=== PATIENT | male | born 1980 | race Caucasian/White ===

== ENCOUNTER 2024-04-08 14:30 | Outpatient (AMB) | payer MEDICAID, SELFPAY ==
--- NOTE | 2024-04-08 14:30 | A.OFFVIS_ITS ---
Vital Signs 04/08/24 14:31 Height 5 ft 8 in Weight 213 lb 13.574 oz BMI 32.5 BP 110/61 Blood Pressure Location Lt brachial Position Sitting Pulse 88 Intake Visit Reasons: Okay per Dr. Gerard Intake Note: Jerry presents in the office as a new patient because he has pains in his abdomen. CC: Pains in the abdomen, sometimes he has constipation. Extraction Operator Required: No Allergies No Known Allergies Allergy (Verified 04/08/24 14:30) HPI HPI Okay per Dr. Gerard: Details: HPI 43 yr old m here for assessment for GERD He had issues with stress and GERD 'he had many tests in [place], [place] and [place] incl EGD was put on paroxetine Recently he feels more reflux worse he has disabled daughter, stressful he feels food getting stuck he has to drink water to push it down he has water and bad taste in mouth he has nausea he has constipation, no blood in stool increased stool frequency at times he takes omeprazole 40 mg prn --last took yesterday he has fatigue he has canker sores ROS: Constitutional : No Weight loss, No Fever, No Chills ENT/Mouth : No sore throat, No Rhinorrhea Eyes: No Swelling, No Redness Cardiovascular : No Chest Pain, No SOB, No Edema--+ Palpitations Respiratory : No Cough, No Sputum, No Wheezing Gastrointestinal : see HPI Genitourinary : NO Dysuria, No Urinary Frequency, No Hematuria, No Urgency Musculoskeletal : No joint pain, No Myalgias, No Joint Swelling--he has pain in mid spine area Skin : No Skin Lesions, No rash Neuro : No Weakness, No Numbness, No Dizziness, No Headache Psych : No Anxiety/Panic, No Depression Heme/Lymph: No Bruising, No Lymphadenopathy Endocrine : No Polyuria, No Polydipsia All other systems reviewed and are negative. Medical History anxiety Surgical History EGD Family History Depresssion mother had liver cancer Social History non smoker, no alcohol, no drug EXAM: GENERAL: The patient is well developed and nontoxic. VITAL SIGNS:see workflow HEENT: Nonicteric sclerae, PERRLA, EOMI. Oropharynx clear. Moist mucous membranes. Conjunctivae appear well perfused. No thyroid mass. CHEST: Chest wall is nontender. HEART: Regular rate and rhythm without murmurs. LUNGS: Clear to auscultation bilaterally. ABDOMEN: Soft, positive bowel sounds, nontender, no organomegaly.no flank tenderness SKIN: No rash, no excessive bruising, petechiae, or purpura. NEUROLOGIC: Cranial nerves II-XII intact without motor/sensory deficit. Psych: normal affect A/P: 1/ GERD 2/ Anxiety PLAN: 1/ EGD with dilation 2/ Labs incl Hep C, B 3/ refer cardiology for palpitations, 4/ check h pylori PFSH Family History Mother Lung cancer Physical Exam Vital Signs: Last Vital Signs Pulse 88 04/08/24 14:31 BP 110/61 04/08/24 14:31 BMI result Body Mass Index 32.5 Assessment & Plan Assessment & Plan (1) GERD (gastroesophageal reflux disease): Code(s): K21.9 - Gastro-esophageal reflux disease without esophagitis Category: Medical Plan: see above (2) Palpitations: Code(s): R00.2 - Palpitations Category: Medical Plan: see above (3) Malnutrition: Code(s): E46 - Unspecified protein-calorie malnutrition Category: Medical Plan: see above Orders: Orders Complete Blood Count Auto Diff Today E46 - Unspecified protein-calorie malnutrition, K21.9 - Gastro-esophageal reflux disease without esophagitis, R00.2 - Palpitations Comprehensive Met. Panel Today E46 - Unspecified protein-calorie malnutrition, K21.9 - Gastro-esophageal reflux disease without esophagitis, K75.81 - Nonalcoholic steatohepatitis (CRUZ), R00.2 - Palpitations Vitamin B3 (Niacin) Today E46 - Unspecified protein-calorie malnutrition, K21.9 - Gastro-esophageal reflux disease without esophagitis, R00.2 - Palpitations Vitamin B5 (Pantothenic Acid) Today E46 - Unspecified protein-calorie malnutrition, K21.9 - Gastro-esophageal reflux disease without esophagitis, R00.2 - Palpitations Vitamin B6 Today E46 - Unspecified protein-calorie malnutrition, K21.9 - Gastro-esophageal reflux disease without esophagitis, R00.2 - Palpitations Vitamin C Today E46 - Unspecified protein-calorie malnutrition, K21.9 - Gastro- esophageal reflux disease without esophagitis, R00.2 - Palpitations Ferritin Today E46 - Unspecified protein-calorie malnutrition, K21.9 - Gastro- esophageal reflux disease without esophagitis, R00.2 - Palpitations Creatine Kinase Total Today E46 - Unspecified protein-calorie malnutrition, K21.9 - Gastro-esophageal reflux disease without esophagitis, R00.2 - Palpitations Transglutaminase IgA Today E46 - Unspecified protein-calorie malnutrition, K21.9 - Gastro-esophageal reflux disease without esophagitis, R00.2 - Palpitations Vitamin A Today E46 - Unspecified protein-calorie malnutrition, K21.9 - Gastro- esophageal reflux disease without esophagitis, R00.2 - Palpitations Vitamin B1 Today E46 - Unspecified protein-calorie malnutrition, K21.9 - Gastro-esophageal reflux disease without esophagitis, R00.2 - Palpitations Vitamin B12 and Folate Today E46 - Unspecified protein-calorie malnutrition, K21.9 - Gastro-esophageal reflux disease without esophagitis, R00.2 - Palpitations Vitamin D 25-OH Total Today E46 - Unspecified protein-calorie malnutrition, K 21.9 - Gastro-esophageal reflux disease without esophagitis, R00.2 - Palpitations Vitamin E Today E46 - Unspecified protein-calorie malnutrition, K21.9 - Gastro- esophageal reflux disease without esophagitis, R00.2 - Palpitations Vitamin K1 Today E46 - Unspecified protein-calorie malnutrition, K21.9 - Gastro-esophageal reflux disease without esophagitis, R00.2 - Palpitations Zinc Today E46 - Unspecified protein-calorie malnutrition, K21.9 - Gastro- esophageal reflux disease without esophagitis, R00.2 - Palpitations Hepatitis A,B,C Profile Today E46 - Unspecified protein-calorie malnutrition, K21.9 - Gastro-esophageal reflux disease without esophagitis, R00.2 - Palpitations Hemoglobin A1c Today E46 - Unspecified protein-calorie malnutrition, K21.9 - Gastro-esophageal reflux disease without esophagitis, R00.2 - Palpitations Magnesium Today E46 - Unspecified protein-calorie malnutrition, K21.9 - Gastro- esophageal reflux disease without esophagitis, R00.2 - Palpitations Rast Allergen Today E46 - Unspecified protein-calorie malnutrition, K21.9 - Gastro-esophageal reflux disease without esophagitis, R00.2 - Palpitations, Z91.018 - Allergy to other foods H Pylori Breath Test Today E46 - Unspecified protein-calorie malnutrition, K21.9 - Gastro-esophageal reflux disease without esophagitis, R00.2 - Palpitations TSH reflex Free T4 Today E46 - Unspecified protein-calorie malnutrition, K21.9 - Gastro-esophageal reflux disease without esophagitis, R00.2 - Palpitations Immunoglobulins,IgG IgA IgM Today E46 - Unspecified protein-calorie malnutrition, K21.9 - Gastro-esophageal reflux disease without esophagitis, R00.2 - Palpitations Referrals Cardiology Referral R00.2 - Palpitations Medications: New sucralfate 10 mL PO BID 1,000 mL 0RF Coding Level of Care Code New Pt Level 4 (22317) Diagnoses GERD (gastroesophageal reflux disease) K21.9 Palpitations R00.2 Malnutrition E46
[2024-04-08 14:31] VITALS: BP 110/61; PULSE 88; BMI 32.5
== END 2024-04-08 15:31 | disposition home or self-care (01) ==
LOC: HO.HGI 14:30
PROVIDERS: Visit Provider Internal Medicine Gastroenterology
DX: K21.9 Gastro-esophageal reflux disease without esophagitis (principal); R00.2 Palpitations; E46 Unspecified protein-calorie malnutrition
CPT/HCPCS: 99204

== ENCOUNTER 2024-04-08 14:30 | Outpatient (REF) | payer MEDICAID, SELFPAY ==
[2024-04-08 16:15] LABS: MANUAL DIFF FLAG NO
[2024-04-08 16:35] LABS: Basophils Percent Auto 0.3 % (0-2); Eosinophils Absolute Auto 0.1 X10*3/uL (0.0-0.4); Hematocrit 45.1 % (42.0-52.0); Hemoglobin 15.2 g/dl (14.0-18.0); Imm Gran Abs Auto 0.01 X10*3/uL (0.00-0.03); Imm Gran Pct Auto 0.1 % (0.0-0.4); Lymphocytes Absolute Auto 2.1 X10*3/uL (1.2-4.9); Lymphocytes Percent Auto 28.5 % (20-40); Mean Corpuscular HGB Conc 33.7 g/dl (31.0-36.0); Mean Corpuscular Hemoglobin 28.4 pg (27.0-33.0); Mean Corpuscular Volume 84.3 fL (80.0-98.0); Mean Platelet Volume 9.6 fL (9.4-12.4); Monocytes Absolute Auto 0.6 X10*3/uL (0.1-1.2); Monocytes Percent Auto 8.2 % (2-11); Neutrophils Absolute Auto 4.5 x10*3/uL (2.0-8.3); Neutrophils Percent Auto 61.9 % (45-73); Platelet Count 285 X10*3/uL (160-400); Red Blood Count 5.35 X10*6/uL (4.60-5.80); Red Cell Distribution Width 12.6 % (11.0-16.0); White Blood Count 7.2 X10*3/uL (4.8-10.8)
[2024-04-08 17:15] LABS: Estimated Average Glucose 100 mg/dL; Hemoglobin A1c % 5.1 % (<6.0); Total Hemoglobin (HGBA1C) 3900.4592 umol/L
[2024-04-08 17:23] LABS: Alanine Aminotransferase 70 U/L (0-40); Albumin Level 4.5 g/dL (3.5-5.0); Alkaline Phosphatase 65 U/L (39-117); Anion Gap 13 (12-20); Aspartate Amino Transferase 157 U/L (5-37); Bilirubin Total 1.3 mg/dL (0.0-1.0); Blood Urea Nitrogen 10 mg/dL (9-16); Calcium 10.2 mg/dL (8.4-10.2); Carbon Dioxide 27 mmol/L (22-29); Chloride 106 mmol/L (96-108); Estimated Glomerular Filt Rate > 60; Glucose Random 80 mg/dL (60-115); Sodium 142 mmol/L (135-145); Total Protein 7.7 g/dL (6.5-8.0)
[2024-04-08 17:41] LABS: Folate 9.8 ng/mL (> or = 4.0); Vitamin B12 298 pg/mL (200-900)
[2024-04-08 17:47] LABS: Ferritin 153 ng/mL (20-250); TSH reflex Free T4 2.35 uIU/mL (0.32-4.0); Vitamin D 25-OH Total 18.6 ng/mL (>30)
[2024-04-09 04:09] LABS: HBc Num1 0.08 S/CO (0.00-0.79); Hepatitis A Antibody IgM 0.25 Index (0-0.79); Hepatitis B Core Antibody Nonreactive (Nonreactive); Hepatitis B Surface Antigen Negative (Negative); ~Hepatitis A Antibody IgM Nonreactive (Nonreactive)
[2024-04-09 04:40] LABS: ~HepC Num1 0.21 S/CO (0.00-0.79); ~Hepatitis C Antibody Nonreactive (Nonreactive)
[2024-04-09 10:58] LABS: HBS Num1 9.17 mIU/mL (0-7.99)
[2024-04-09 11:59] LABS: HBS Num2 8.96 mIU/mL (0-7.99); HBS Num3 8.82 mIU/mL (0-7.99); ~Hepatitis B Surface Antibody GRAYZONE (Nonreactive)
[2024-04-10 13:22] LABS: Transglutaminase IgA <1.0 U/mL
[2024-04-11 18:23] LABS: Zinc 57 mcg/dL (60-130)
[2024-04-11 22:44] LABS: IgA 253 mg/dL (47-310); IgG 1451 mg/dL (600-1640); IgM 127 mg/dL (50-300)
[2024-04-12 16:04] LABS: Nicotinamide <20 ng/mL (see note); Vit B3 - Nicotinic Acid <20 ng/mL (see note)
[2024-04-12 20:03] LABS: Vitamin B6 7.3 ng/mL (2.1-21.7)
[2024-04-13 00:04] LABS: Vitamin K1 178 pg/mL (130-1500)
[2024-04-13 10:14] LABS: Vitamin C 0.2 mg/dL (0.2-2.1)
[2024-04-13 18:34] LABS: Vitamin B1 11 nmol/L (8-30)
[2024-04-14 08:59] LABS: Alpha-Tocopherol 14.9 mg/L (5.7-19.9); Beta-Gamma Tocopherol <1.0 mg/L (<=4.3)
[2024-04-14 15:33] LABS: Vitamin B5 (Pantothenic Acid) <=40 ng/mL (<275)
[2024-04-14 20:38] LABS: Vitamin A 53 mcg/dL (38-98)
== END 2024-04-08 14:31 | disposition home or self-care (01) ==
LOC: HO.LAB 14:30
PROVIDERS: Visit Provider Internal Medicine Gastroenterology
DX: K75.81 Nonalcoholic steatohepatitis (NASH) (principal); R00.2 Palpitations; K21.9 Gastro-esophageal reflux disease without esophagitis; E46 Unspecified protein-calorie malnutrition; R10.9 Unspecified abdominal pain; Z91.018 Allergy to other foods
CPT/HCPCS: 36415; 80053; 82180; 82306; 82550; 82607; 82728; 82746; 82784; 83036; 83735; 84207; 84425; 84443; 84446; 84590; 84591; 84597; 84630; 85025; 86003; 86364; 86704; 86706; 86709; 86803; 87340; 99202

== ENCOUNTER 2024-04-15 11:08 | Outpatient (REF) | payer MEDICAID, SELFPAY ==
[2024-04-15 13:05] LABS: Alanine Aminotransferase 31 U/L (0-40); Albumin Level 4.2 g/dL (3.5-5.0); Alkaline Phosphatase 60 U/L (39-117); Anion Gap 7 (12-20); Aspartate Amino Transferase 22 U/L (5-37); Bilirubin Total 1.5 mg/dL (0.0-1.0); Blood Urea Nitrogen 9 mg/dL (9-16); Calcium 8.8 mg/dL (8.4-10.2); Carbon Dioxide 29 mmol/L (22-29); Chloride 107 mmol/L (96-108); Estimated Glomerular Filt Rate > 60; Glucose Random 101 mg/dL (60-115); Potassium 3.8 mmol/L (3.3-5.1); Sodium 139 mmol/L (135-145); Total Protein 7.3 g/dL (6.5-8.0)
== END 2024-04-15 11:09 | disposition home or self-care (01) ==
LOC: HO.LAB 11:08
PROVIDERS: Visit Provider Internal Medicine Gastroenterology
DX: K75.81 Nonalcoholic steatohepatitis (NASH) (principal); R00.2 Palpitations
CPT/HCPCS: 36415; 80053; 82550

== ENCOUNTER 2024-04-22 10:01 | Outpatient (AMB) | payer MEDICAID, SELFPAY ==
--- NOTE | 2024-04-22 10:13 | AM.OFFVISNUR ---
Intake Visit Reasons: H.pylori Breath Test Allergies No Known Allergies Allergy (Verified 04/08/24 14:30) Nursing Note Patient presents for collection of H Pylori breath test. Patient has been fasting for 1 hour (nothing to eat, drink, no chewing gum or smoking) has not taken any antacid medication for at least 2 weeks and has no allergies to artificial sweeteners.?? Assessment & Plan Assessment & Plan (1) GERD (gastroesophageal reflux disease): Code(s): K21.9 - Gastro-esophageal reflux disease without esophagitis Category: Medical Plan Patient presents for collection of H Pylori breath test. Patient has been fasting for 1 hour (nothing to eat, drink, no chewing gum or smoking) has not taken any antacid medication for at least 2 weeks and has no allergies to artificial sweeteners.???This test checks for an overgrowth of bacteria in your stomach. We all have bacteria but some may have more than others. It is treatable. if the test comes back negative there is nothing else to do. If the test result is positive we will treat you with 2 antibiotics and a medication to decrease the acid in your stomach (PPI) for 2 weeks. Two weeks after you have completed the treatment we will retest you to make sure the overgrowth has resolved. Patient Instructions: Process for specimen collection and reason for testing was explained to the patient. Specimen collection. Patient instructed to take a deep breath and then exhale into the blue bag, filling it up as much as possible. Patient instructed to drink a mixture of water and the artificial sweetener with a straw. A 15 minute wait period was observed. Patient instructed to take a deep breath and then exhale into the pink bag, filling it up as much as possible.??
== END 2024-04-22 10:28 | disposition home or self-care (01) ==
LOC: HO.HGI 10:01
PROVIDERS: Visit Provider Internal Medicine Gastroenterology
DX: K21.9 Gastro-esophageal reflux disease without esophagitis (principal)

== ENCOUNTER 2024-04-22 10:01 | Outpatient (REF) | payer MEDICAID, SELFPAY ==
[2024-04-24 14:54] LABS: H Pylori Breath Test Negative (Negative)
== END 2024-04-22 10:02 | disposition home or self-care (01) ==
LOC: HO.LNP 10:01
PROVIDERS: Visit Provider Internal Medicine Gastroenterology
DX: R00.2 Palpitations (principal); K21.9 Gastro-esophageal reflux disease without esophagitis; E46 Unspecified protein-calorie malnutrition
CPT/HCPCS: 83013; 99211

== ENCOUNTER 2024-05-02 11:53 | Day surgery (SDC) | payer MEDICAID, SELFPAY ==
[2024-04-30 14:28] VITALS: BMI 32.5
--- NOTE | 2024-05-01 09:36 | HO.ANESPROP2 ---
HPI - Anesthesia Eval Consult details Narrative: 43yo M for Upper Endoscopy PMFSH Active Problems Active Problems: All Active Problems Malnutrition (Acute) Palpitations (Acute) GERD (gastroesophageal reflux disease) (Acute) Past Medical History Medical History (Updated 04/30/24 @ 14:26 by Promise Zarate, RN) GERD (gastroesophageal reflux disease) Palpitations Family History Family History Mother Lung cancer Surgical History Surgical History (Updated 04/30/24 @ 14:29 by Promise Zarate, CARLOS) History of esophagogastroduodenoscopy (EGD) Meds Allergies Allergy/AdvReac Type Severity Reaction Status Date / Time No Known Allergies Allergy Verified 04/08/24 14:30 Home Medications ?Medication ?Instructions ?Recorded ?Confirmed ?Last Taken ?Type omeprazole 20 mg capsule,delayed 20 mg PO BID 04/08/24 04/30/24 Unknown History release Exam Height,Weight and Vital Signs: Height 5 ft 8 in Weight 97.069 kg Assessment and Plan Assessment Anesthesia Assessment: Chart Reviewed
[2024-05-02 12:19] VITALS: BMI 30.3
[2024-05-02 12:25] VITALS: BP 126/77; PULSE 87; RESP 15; TEMP 36.9; O2SAT 98
--- NOTE | 2024-05-02 12:31 | MHC.SHP ---
Pre-Procedural Eval Section A - 24 Hr Update-Section A only Date of Service: 05/02/24 The patient is an INPATIENT: No The patient has been examined within 24 hours of the surgical procedure. The History & Physical has been completed within 30 days and I have reviewed it.: Yes Section B - Complete if H&P > 30 days Chief Complaint: Unspecified protein-calorie malnutrition Allergies: Allergies Allergy/AdvReac Type Severity Reaction Status Date / Time No Known Allergies Allergy Verified 05/02/24 12:19 Plan Diagnosis/Plan: Unchanged I have reviewed the history and physical and performed a pertinent physical examination on my patient. No changes have occurred unless specified. egd with balloon dilation and bx Time Spent With Patient Time: Total time managing care of this patient today ____ minutes.
[2024-05-02] MEDS: Lactated Ringers 1,000 ML 100 ML IVCONT (12:37)
--- NOTE | 2024-05-02 13:00 | W.PM.OPN ---
Operative Note Operative Note Date of Service: 05/02/24 Narrative: Procedure Description: EGD Indication: dysphagia Anesthesia: MAC FLEXIBLE TRANSORAL UPPER GASTROINTESTINAL ENDOSCOPY UPPER ENDOSCOPY Consent: Indications for the procedure and potential complications of bleeding, perforation, reaction to medications and missed diagnosis were discussed with the patient and informed consent was obtained. Instrument: Olympus GIF H 190 J mid size upper endoscope Monitoring: Vital signs and clinical assessment, continuous EKG monitoring, Pulse oximetry, Carbon Dioxide monitoring and blood pressure monitoring were done throughout the procedure. Procedure: The patient was placed in the left lateral decubitis position and pre-procedure medications were administered and a bite block was placed. The endoscope was inserted into the mouth and advanced under direct vision to the third part of duodenum. A careful inspection was made as the upper endoscope was withdrawn including a retroflexed examination of the proximal stomach; Findings and interventions are described below. Findings: Larynx:normal Esophagus: GE junction at 40 cm, diaphragm hiatus at 40 cm, mild esophagitis, balloon dilation at UES and LES to 20 mm -no tears seen. mild esophagitis at GEJ, bx taken from here and distal, proximal esophagus Stomach: mild erythema . Biopsies were obtained. Grade 2 flap valve on retroflexed examination of the cardia. Duodenum: Normal bulb and descending duodenum, bx taken Intervention: Biopsies as noted above, balloon dilation Impression/Findings: mild gastritis PLAN: await bx GERD precautions cont PPI
[2024-05-02 13:04] VITALS: BP 89/56; PULSE 73; RESP 12; TEMP 36.1; O2SAT 97
[2024-05-02 13:08] VITALS: BP 93/61; PULSE 66; RESP 12; O2SAT 100
[2024-05-02 13:20] VITALS: BP 102/69; PULSE 64; RESP 16; O2SAT 100
[2024-05-02 13:35] VITALS: BP 108/71; PULSE 67; RESP 16; TEMP 36.1; O2SAT 96
== END 2024-05-02 14:50 | disposition home or self-care (01) ==
PROVIDERS: Visit Provider Internal Medicine Gastroenterology
PROC: 0DJ08ZZ Inspection of Upper Intestinal Tract, Via Natural or Artificial Opening Endoscopic (ICD-10-PCS; CPT 43235; principal; 2024-05-02 13:20)
DX: R13.10 Dysphagia, unspecified (principal); K21.9 Gastro-esophageal reflux disease without esophagitis; E46 Unspecified protein-calorie malnutrition; Z68.32 Body mass index [BMI] 32.0-32.9, adult; K75.81 Nonalcoholic steatohepatitis (NASH); R00.2 Palpitations; K20.80 Other esophagitis without bleeding; K29.60 Other gastritis without bleeding; K44.9 Diaphragmatic hernia without obstruction or gangrene; F41.9 Anxiety disorder, unspecified; Z79.899 Other long term (current) drug therapy
CPT/HCPCS: 43249; 43239; 88305; 88313; 88342; C1726; J2003; J2704

== ENCOUNTER → 2024-05-02 11:53 | Outpatient (BNV) | payer MEDICAID, SELFPAY | PROVIDERS: Visit Provider Internal Medicine Gastroenterology | DX: R13.10 Dysphagia, unspecified (principal); K20.90 Esophagitis, unspecified without bleeding; K29.70 Gastritis, unspecified, without bleeding | CPT/HCPCS: 43239; 43249 ==

== ENCOUNTER 2024-09-06 22:02 | Emergency (ER) | payer MEDICAID, SELFPAY ==
[2024-09-06 22:26] VITALS: BP 112/50; PULSE 67; RESP 18; TEMP 36.8; O2SAT 99; BMI 30.2
[2024-09-06 22:46] LABS: Hematocrit 38.2 % (42.0-52.0); Hemoglobin 13.3 g/dl (14.0-18.0); Mean Corpuscular HGB Conc 34.8 g/dl (31.0-36.0); Mean Corpuscular Hemoglobin 28.1 pg (27.0-33.0); Mean Corpuscular Volume 80.8 fL (80.0-98.0); Mean Platelet Volume 10.3 fL (9.4-12.4); Platelet Count 211 X10*3/uL (160-400); Red Blood Count 4.73 X10*6/uL (4.60-5.80); Red Cell Distribution Width 12.5 % (11.0-16.0); White Blood Count 5.3 X10*3/uL (4.8-10.8)
[2024-09-06 23:02] LABS: Alanine Aminotransferase 19 U/L (0-40); Albumin Level 3.8 g/dL (3.5-5.0); Alkaline Phosphatase 53 U/L (39-117); Anion Gap 10 (12-20); Aspartate Amino Transferase 18 U/L (5-37); Bilirubin Direct 0.4 mg/dL (0.0-0.5); Bilirubin Total 1.3 mg/dL (0.0-1.0); Blood Urea Nitrogen 12 mg/dL (9-16); Calcium 8.7 mg/dL (8.4-10.2); Carbon Dioxide 23 mmol/L (22-29); Chloride 112 mmol/L (96-108); Creatinine Clr Calc Pharmacy 109.3; Estimated Glomerular Filt Rate > 60; Glucose Random 110 mg/dL (60-115); Lipase 28 U/L (8-78); Potassium 3.7 mmol/L (3.3-5.1); Sodium 141 mmol/L (135-145); Total Protein 6.8 g/dL (6.5-8.0)
--- NOTE | 2024-09-07 04:34 | ED.ABDPAIN ---
HPI - Abdominal Pain General Chief Complaint: Abdominal Pain Stated Complaint: Rt side liver pain; choking when eating Time Seen by Provider: 09/07/24 04:30 Source: patient Mode of arrival: ambulatory Limitations: no limitations History of Present Illness ED Provider: HPI narrative: Patient's history of GERD on omeprazole been fasting complaining of pain last few days in the epigastric with no nausea no vomiting also been constipated also complaining of hemorrhoids not bleeding Related Data Home Medications ?Medication ?Instructions ?Recorded ?Confirmed omeprazole 20 mg capsule,delayed 20 mg PO DAILY 05/02/24 05/02/24 release Previous Rx's ?Medication ?Instructions ?Recorded sucralfate 100 mg/mL oral 10 ml PO BID #1,000 mL 05/28/24 suspension omeprazole 20 mg capsule,delayed 20 mg PO DAILY #90 caps 08/12/24 release Allergies Allergy/AdvReac Type Severity Reaction Status Date / Time No Known Allergies Allergy Verified 09/06/24 22:31 Review of Systems Review of Systems Yes all other systems are reviewed and are negative FORMERLY [facility] Past Medical History Medical History GERD (gastroesophageal reflux disease) Palpitations Surgical History History of esophagogastroduodenoscopy (EGD) Family History Family History Mother Lung cancer Social History Social History Patient Tobacco Use Status: Former Tobacco user Advance Directives: No Advance Directives Information Provided: Yes Physical Exam ED Vital Signs: Vital Signs - 24 hr 09/06/24 22:26 Temperature 98.2 F Pulse Rate 67 Respiratory Rate 18 Blood Pressure 112/50 L Pulse Oximetry 99 Oxygen Delivery Method Room Air BMI result Body Mass Index 30.2 Appearance: Alert. Oriented X3. No acute distress. Eyes: PERRLA, No Nystagmus ENT: Pharynx normal. Oral Mucosa moist Neck: Normal inspection. Neck supple. CVS: Normal heart rate and rhythm. Pulses normal. Respiratory: No respiratory distress. Equal air entry bilateral, no wheezing/rales/rhonchi Abdomen: Soft and mild tenderness in epigastric area Bowel sounds are present, no mass palpable, no CVA tenderness Skin: Skin warm and dry. Normal skin color. Normal skin turgor. Extremities: No lower extremity edema. No calf tenderness Neuro: Oriented X 3. No motor deficit. Medical Decision Making Medical Decision Making [facility] [place] Narrative: Patient with GERD, fasting comes here for epigastric pain already on omeprazole followed by GI advised to increase the dose to twice a day drink plenty of fluids labs are stable Lab Data [facility] [place] Lab Attestation statement: I reviewed the patient's lab results. 09/06/24 22:41 09/06/24 22:41 Labs: Lab Results 09/06/24 Range/Units 22:41 WBC 5.3 (4.8-10.8) X10*3/uL RBC 4.73 (4.60-5.80) X10*6/uL Hgb 13.3 L (14.0-18.0) g/dl Hct 38.2 L (42.0-52.0) % MCV 80.8 (80.0-98.0) fL MCH 28.1 (27.0-33.0) pg MCHC 34.8 (31.0-36.0) g/dl RDW 12.5 (11.0-16.0) % Plt Count 211 D (160-400) X10*3/uL MPV 10.3 (9.4-12.4) fL Absolute Nucleated RBC 0.000 (0.0-0.012) X10*3/uL Nucleated RBC % (auto) 0.0 (0.0-0.2) /100WBC Sodium 141 (135-145) mmol/L Potassium 3.7 (3.3-5.1) mmol/L Chloride 112 H (96-108) mmol/L Carbon Dioxide 23 (22-29) mmol/L Anion Gap 10 L (12-20) BUN 12 (9-16) mg/dL Creatinine 0.98 (0.5-1.4) mg/dL Estim Creat Clear Calc 109.3 Estimated GFR > 60 Random Glucose 110 (60-115) mg/dL Calcium 8.7 (8.4-10.2) mg/dL Magnesium 2.0 (1.6-2.6) mg/dL Total Bilirubin 1.3 H (0.0-1.0) mg/dL Direct Bilirubin 0.4 (0.0-0.5) mg/dL AST 18 (5-37) U/L ALT 19 (0-40) U/L Alkaline Phosphatase 53 (39-117) U/L Total Protein 6.8 (6.5-8.0) g/dL Albumin 3.8 (3.5-5.0) g/dL Lipase 28 (8-78) U/L Discharge Plan Discharge Clinical Impression: GERD (gastroesophageal reflux disease) Patient Disposition: Home, Self-Care Instructions: Gastroesophageal Reflux Disease (ED) Additional Instructions: Continue omeprazole as prescribed Continue sucralfate Drink plenty of fluids Follow up with your legal document assistant Prescriptions: No Action sucralfate 100 mg/mL suspension 10 ml PO BID Qty: 1000 0RF omeprazole 20 mg capsule,delayed release(DR/EC) 20 mg PO DAILY Qty: 90 2RF omeprazole 20 mg Capsule,Delayed Release(Dr/Ec) 20 mg PO DAILY Print Language: Persian
[2024-09-07] MEDS: Magnesium Hydrox/Alum Hydrox 30 ML ORAL.SUSP PO (04:49)
[2024-09-07 04:50] VITALS: BP 103/66; PULSE 59; RESP 18; TEMP 36.6; O2SAT 97
== END 2024-09-07 04:51 | disposition home or self-care (01) ==
PROVIDERS: Emergency Provider Internal Medicine
DX: K21.9 Gastro-esophageal reflux disease without esophagitis (principal); R10.13 Epigastric pain
CPT/HCPCS: 36415; 80053; 82248; 83690; 83735; 85027; 99282; 99283

== ENCOUNTER 2024-10-02 07:46 | Outpatient (REF) | payer MEDICAID, SELFPAY ==
--- NOTE | ~2024-10-02 | US_ITS ---
EXAMINATION: US ABDOMEN HISTORY: R10.10 - Upper abdominal pain, unspecified TECHNIQUE: Real-time grayscale ultrasound imaging of the abdomen was performed and images were reviewed. COMPARISON: There are no prior studies for comparison. FINDINGS: Liver: The right lobe of the liver measures 10.3 cm in size. The left lobe of the liver measures 7.3 cm in size. The liver demonstrates normal homogeneous echotexture. No focal mass or intrahepatic biliary ductal dilatation is identified. There is normal hepatopedal flow in the portal vein. Gallbladder and biliary tree: The gallbladder is unremarkable, without evidence of calculi, wall thickening, or pericholecystic fluid. There is no sonographic Redmond sign. The common bile duct is normal in caliber measuring 3 mm. Kidneys: The right kidney measures 9.4 cm in length. The left kidney measures 10.6 cm in length. The kidneys are unremarkable, without evidence of masses, hydronephrosis, or calculi. Pancreas: The pancreatic head, neck, and body are unremarkable. The pancreatic tail is obscured by bowel gas. Spleen: The spleen is normal in size and contour, measuring 12.5 cm in length. Abdominal aorta and inferior vena cava: The visualized portions of the abdominal aorta and inferior vena cava are normal in caliber. There is no free fluid in the abdomen. US/US abdomen complete IMPRESSION: Unremarkable abdominal ultrasound. Electronically signed by: John Hendrickson MD 10/02/2024 09:53 AM EDT
--- OUTSIDE RECORDS SUMMARY | 2024-10-02 07:48 | XMS_ITS | Clinical Summary ---
Author Organization [facility] Address [address] [place] [address] Care Team Providers Care Adjunct Psychology Professor Name Role Phone Sudha Stewart ADZING AND BORING MACHINE OPERATOR-Cornelia Primary Care Provider [phone] Source Comments PLEASE NOTE, if this patient is a minor, it may be UNLAWFUL to discuss sensitive information that is contained in these records (such as FAMILY PLANNING, MENTAL HEALTH or SUBSTANCE ABUSE) with the minor patient's parent or other person without the patient's specific authorization.[facility] Allergies Active Allergy Reactions Criticality Noted Date Comments Ampicillin Unknown 02/29/2024 Pt does now if has allergy for ampicillin, but his grandmother from that meds allergy. Medications No known medications Active Problems Problem Noted Date Diagnosed Date Hepatitis B immune 04/16/2024 Immune to varicella 04/16/2024 History of Helicobacter pylori infection 024 Resolved Problems Problem Noted Date Diagnosed Date Resolved Date Anxiety 02/29/2024 02/29/2024 Encounters Date Type Department Care Team Description 07/04/2024 4:00 PM EST Office Visit [facility] [address] [place] [address] Sina Ya, [place] Complete bony impaction of tooth (Primary Dx); Caries 07/04/2024 Travel from Last 3 Months Immunizations Immunization Administration Dates Next Due COVID-19,SARS-COV-2 VACCINE, UNSPECIFIED (US Adm in) 02/01/2024 HEP B, PED/ADOL 02/01/2024,12/19/2023 INFLUENZA, SEASONAL, INJECTABLE 11/11/2023 IPV 11/11/2023 Influenza (FLUBLOK),recombinant,injectable,preservative Free 04/16/2024 YRN COVID-19 VACCINE 11/11/2023 MMR (MMR II/Priorix) 12/19/2023,11/11/2023 Moderna COVID-19 (Spikevax), Mrna, Lnp-s, Pf, 50 Mcg/0.5 Ml, 12yr+ 04/16/2024 TDAP 02/01/2024,12/19/2023 Varicella, Live Vaccine 12/19/2023,11/11/2023 Social History Tobacco Use Types Packs/Day Years Used Date Smoking Tobacco: Former Cigarettes Passive Smoke Exposure: Past Smokeless Tobacco: Never Tobacco Cessation:Counseling Given: Not Answered Alcohol Use Standard Drinks/Week Comments Not Currently 0 (1 standard drink = 0.6 oz pur e alcohol) Social Connections Answer Date Recorded Connectedness 0 02/29/2024 Financial Resource Strain Answer Date R ecorded Financial Resource Strain 0 2023 Stress Answer Date Recorded Stress 0 02/15/2024 Physical Activity Answer Date Recorded Physical Activity 0 02/15/2024 Food Insecurity Answer Date Recorded Food 0 03/15/2024 Transportation Needs Answer Date Record ed Transportation 0 02/15/2024 Housing Stability Answer Date Recorded Housing 0 02/15/2024 Safety and Environment Answer Date Med rded Safety 0 02/15/2024 Utilities Answer Date Recorded Utilities 0 02/15/2024 Employment Answer Date Recorded Stress 0 02/29/2024 Sex and Gender Information Value Date Recorded Sex Assigned at Male 02/29/2024 7:38 AM PDT Legal Sex Male 1:40 PM PDT Gender Identity Male 02/29/2024 7:38 AM PDT Sexual Orientation Straight 02/29/2024 7: 38 AM PDT Last Filed Vital Signs Vital Sign Reading Time Taken Comments Blood Pressure 114/80 04/16/2024 10:42 AM EDT Pulse 73 04/16/2024 10:42 AM EDT Temperature 37 ??C (98.6 ??F) 04/16/2024 10:42 AM EDT Respiratory Rate 17 04/16/2024 10:42 AM EDT Oxygen Saturation - - Inhaled Oxygen Concentration - - Weight 97.1 kg (214 lb) 04/16/2024 10:42 AM EDT Height 179 cm (5' 10.47 ) 04/16/2024 10:42 AM ED T Body Mass Index 30.3 04/16/2024 10:42 AM EDT Plan of Treatment Upcoming Encounters Date Type Department Care Team (Late st Contact Info) Description 10/25/2024 8:40 AM EDT Office Visit [facility] [address] [place] [address] Sudha Stewart FNP-Cornelia [address] [place] [address] Health Maintenance Due Date Last Done Comments Anxiety Screening 1980 Dental Perio Charting 1980 Diabetes Screening 1980 Lipid Screening 1980 Alcohol and Drug Screen 06/19/2024 Depression Annual Screen 06/19/2024 Hypertension Screening (#1) 04/16/2025 Tobacco Screening 04/16/2025 04/16/2024 Dental BW 07/06/2025 07/04/2024 Dental Examination 07/06/2025 07/04/2024 Dental Prophy 07/06/2025 07/04/2024 Dental FMX/Pano 07/06/2029 07/04/2024 Imm-DTaP/Tdap/Td (3 - Td or Tdap) 01/31/2034 024, 12/19/2023 Imm-Hepatitis B Discontinued 02/01/2024, 12/19/2023 HIV Screening Completed 02/29/2024 Hepatitis C Screening Completed 02/29/2024 [id number] Completed 04/16/2024, 01/17, 11/11/2023 Imm-Influenza Completed 04/16/2024, 11/11/2023 Procedures Procedure Name Priority Date/Time Associated Diagnosis Comments DENTAL CASE MANAGEMENT - MOTIVATIONAL INTV Routine 07/04/2024 4:00 PM EST Complete bony impaction of tooth Caries PROPHYLAXIS - ADULT Routine 07/04/2024 4 :00 PM EST Complete bony impaction of tooth Caries INTRAORAL - COMP SERIES OF RADIOGRAPHIC IMAGES Routine 07/04/2024 4:00 PM EST Caries Complete bony impaction of tooth COMP ORAL EVALUATION - NEW/ESTABLISHED PATIENT Routine 07/04/2024 4:00 PM EST Complete bony impaction of tooth Caries CARIES RISK ASSESSMENT & DOC FINDING HIGH RISK Routine 07/04/2024 4:00 PM EST Complete bony impaction of tooth Caries NUTRITIONAL COUNSELING CONTROL OF DENTAL DISEASE Routine 07/04/2024 4:00 PM EST Complete bony impaction of tooth Caries ORAL HYGIENE INSTRUCTIONS Routine 07/04/2024 4:00 PM EST Complete bony impaction of tooth Caries ORAL CANCER SCREENING Routine 07/04/2024 4:00 PM EST Complete bony impaction of tooth Caries CASE PRESENTATION SUBS DTL & EXTENSIVE TX PLN Routine 07/04/2024 4:00 PM EST Complete bony impaction of tooth Caries HIV 1/2 AG & AB W/RFLX (4TH GEN) Routine 02/29/2024 11:31 AM EDT Refugee health examination HEPATITIS C AB W/RFLX HCV RNA, QT, RT PCR Routine 02/29/2024 11:31 AM EDT Refugee health examination from Last 3 Months or Most Recently Relevant to Health Maintenance Results * HEPATITIS C AB W/RFLX HCV RNA, QT, RT PCR (02/29/2024 11:31 AM EDT) HEPATITIS C ANTIBODY NON-REACT JOANNA NON-REACT JOANNA MD [facility] Comment: HCV antibody was non-reactive. There is no laboratory evidence of HCV infection. In most cases, no further action is required. However, if recent HCV exposure is suspected, a test for HCV RNA (test code 44748) is suggested. For additional information please refer to http://education.FanSnap/faq/BDP55e3 (This link is being provided for informational/ educational purposes only.) Blood Blood / Unknown 02/29/2024 1 1:31 AM EDT 02/29/2024 11:32 AM EDT Narrative [facility] - 03/04/2024 10:52 PM EDT FASTING:UNKNOWN COLLECTION KIT GIVEN TO PATIENT. PATIENT ADVISED TO RETURN. Sudha Stewart ADZING AND BORING MACHINE OPERATOR-C LAB - BLOOD DRAW Edited R esult - Final MD [facility] [address] [address], MD [facility] [address] [address] * HIV 1/2 AG & AB W/RFLX (4TH GEN) (02/29/2024 11:31 AM EDT) HIV AG/AB, 4TH GEN NON-REAC TIVE NON-REAC TIVE [employer] [facility] Comment: HIV-1 antigen and HIV-1/HIV-2 antibodies were not detected. There is no laboratory evidence of HIV infection. PLEASE NOTE: This information has been disclosed to you from records whose confidentiality may be protected by state law. ??If your state requires such protection, then the state law prohibits you from making any further disclosure of the information without the specific written consent of the person to whom it pertains, or as otherwise permitted by law. A general authorization for the release of medical or other information is NOT sufficient for this purpose. ?? For additional information please refer to http://education.FanSnap/faq/ZCO805 (This link is being provided for informational/ educational purposes only.) The performance of this assay has not been clinically validated in patients less than 2 years old. Blood Blood / Unknown 02/29/2024 1 1:31 AM EDT 02/29/2024 11:32 AM EDT Narrative [employer] [facility] - 03/04/2024 10:52 PM EDT FASTING:UNKNOWN COLLECTION KIT GIVEN TO PATIENT. PATIENT ADVISED TO RETURN. Sudha Stewart ADZING AND BORING MACHINE OPERATOR-C LAB - BLOOD DRAW Final Re sult [facility] [address] [place] [id number], MD [facility] [address] [address] from Last 3 Months or Most Recently Relevant to Health Maintenance Insurance [employer] [place] Care Teams Adjunct Psychology Professor Relationship Specialty Start Date End Date Sudha Stewart FNP-C [address] [place] [address] PCP - General Internal Medicine 07/04/24
== END 2024-10-02 07:47 | disposition home or self-care (01) ==
LOC: HO.US 07:46
PROVIDERS: Visit Provider Internal Medicine Gastroenterology
DX: R10.10 Upper abdominal pain, unspecified (principal)
CPT/HCPCS: 76700

== ENCOUNTER → 2024-10-02 07:50 | Outpatient (BNV) | payer MEDICAID, SELFPAY | PROVIDERS: Visit Provider Radiology Diagnostic Radiology | DX: R10.10 Upper abdominal pain, unspecified (principal) | CPT/HCPCS: 76700 ==

== ENCOUNTER 2024-11-06 08:20 | Outpatient (AMB) | payer MEDICAID, SELFPAY ==
--- NOTE | 2024-11-06 08:26 | MHC.OFFVIS ---
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 He states that he has had palpitations for quite some time. About 3 times or so per year. Each time lasts about 20 minutes. He states he has had EKGs in the past but nothing revealing. A previous physician had apparently prescribed propranolol which he has taken and he found it helpful. However, there is no diagnosis. No other complaints like angina or shortness of breath. He does have a history of acid reflux. Otherwise, no documented cardiac issues like coronary disease or myocardial infarction or cardiomyopathy. [facility] Medical History GERD (gastroesophageal reflux disease) Palpitations Surgical History History of esophagogastroduodenoscopy (EGD) Family History Mother Lung cancer Social History (Updated 11/06/24 @ 08:29 by Celena Presley CMA) Unable to assess alcohol history related to: Unable to respond Patient Tobacco Use Status: Former Tobacco user Review of Systems Const Denies chills, Denies fatigue, Denies fever(s), Denies frequent falls, Denies weakness, Denies weight gain and Denies weight loss ENT Denies dizziness Card Reports chest pain, Reports chest pain at rest, Reports chest pain with activity, Denies leg edema, Denies lightheadedness, Reports palpitations, Denies dyspnea, Denies dyspnea on exertion and Denies orthopnea Resp Denies cough, Denies dyspnea and Denies dyspnea on exertion GI Denies bloating and Denies change in bowel habits Musc Denies muscle weakness, Denies numbness and Denies tingling Neuro Denies dizziness, Denies frequent falls, Denies numbness, Denies tingling and Denies weakness Endo Denies fatigue and Reports palpitations Physical Exam Vital Signs: Last Vital Signs Pulse 76 11/06/24 08:27 BP 120/74 11/06/24 08:27 BMI result Body Mass Index 29.2 Const General: comfortable and no acute distress Orientation/consciousness: patient oriented x3 HEENT Other: Unremarkable Head: Yes normal to inspection Neck Neck: Yes normal visual inspection Chest Chest palpation & inspection: normal inspection of the chest Resp Auscultation: clear to auscultation bilaterally Cardio Palpation: normal PMI Heart sounds: S1 normal heart sound present, S2 normal heart sound present, no gallops, no murmurs and no rubs GI Palpation (GI): Soft to palpation Back/Spine/Pelvis Other: unremarkable Skin General skin exam: no rashes or lesions noted Neuro General: patient oriented x3 Extrem General: Yes normal to inspection Psych Mental Status: mental status grossly normal Office Procedures EKG Details: EKG with underlying sinus rhythm at 76/Min; no significant ST-T changes and otherwise unremarkable[place] [id number], Complete Assessment & Plan Assessment & Plan (1) Palpitations: Code(s): R00.2 - Palpitations Category: Medical Plan Palpitations of uncertain etiology. Could be supraventricular tachycardia. Other arrhythmias like atrial flutter or fibrillation are less likely. We will start with an echocardiogram and Holter monitor for further evaluation. As the palpitations are quite infrequent, it is possible that we may not be able to get this on Holter. Advised him that next time he gets the palpitations he should probably come to ER or seek other help so that an EKG can be completed to capture the arrhythmia. Discussion Notes We discussed with the patient the current presentation of palpitations and the need for further evaluation to determine the underlying cause. I explained the use of a Holter monitor for continuous cardiac rhythm assessment and the benefits of an echocardiogram to evaluate heart structure and function. I highlighted the importance of capturing an episode on an EKG for precise diagnostic information. I provided anticipatory guidance about seeking immediate care if symptoms worsen. The patient understood and consented to the outlined plan. Patient was informed and verbally consented to the use of an ambient scribe for clinic note documentation during this visit. Orders: Orders CA echo transthoracic complete Today R00.2 - Palpitations ECG 14 day holter monitor Today R00.2 - Palpitations Patient Instructions: - If you have an episode of palpitations, try to visit a medical facility to get an EKG. - Undergo a Holter monitor evaluation as instructed. - Check your heart function with an echocardiogram as scheduled. - Return to the hospital if symptoms worsen or do not improve. - Continue to avoid smoking. Coding Level of Care Code New Pt Level 4 (92196) Diagnoses Palpitations R00.2 CPT Codes EKG - CPT: 36084-[id number], Complete ([id number])
[2024-11-06 08:27] VITALS: BP 120/74; PULSE 76; BMI 29.2
== END 2024-11-06 08:45 | disposition home or self-care (01) ==
LOC: HO.HCS 08:20
PROVIDERS: PCP Registered Nurse; Visit Provider Internal Medicine
DX: R00.2 Palpitations (principal)
CPT/HCPCS: 93010; 99204

== ENCOUNTER → 2024-11-06 08:20 | Outpatient (BNVA) | payer MEDICAID, SELFPAY | PROVIDERS: Visit Provider Internal Medicine | DX: R00.2 Palpitations (principal) | CPT/HCPCS: 93005; 99202 ==

== ENCOUNTER → 2024-11-29 09:57 | Outpatient (REF) | payer MEDICAID, SELFPAY ==
--- NOTE | 2024-11-29 10:13 | CA_ITS ---
Transthoracic Echocardiogram Patient (Last, First, Middle): Jerry Morin, Gender: Male Date of : 1980 Age: 44 Procedure Date: 11/29/2024 Procedure Type: Transthoracic Echocardiogram Location: OP Height: 175.26 cm Weight: 88.99 kg BSA: 2.05 m2 Heart Rate: 71 bpm BP: 120 / 70 mmHg Personal Development Mentor: LEIDY Mendoza MD: José Miguel Moseley MD Apparel Fashion Designer: Etienne Rojo MD Symptoms: R00.2 - Palpitations Study Quality: Adequate ECG Rhythm: Sinus Conclusions: - Essentially normal study Findings Left Ventricle Normal left ventricular size, thickness, and systolic function. The visually estimated ejection fraction is between 65-70%. Spectral Doppler is indicative of a normal filling pattern. Right Ventricle Normal right ventricular cavity size and systolic function. Atria Both atria are normal in size. There is no evidence of interatrial shunt. Aortic Valve Normal aortic valve structure and function. There is no aortic valve stenosis. There is no aortic valve regurgitation. Mitral Valve Normal mitral valve structure and function. There is trace mitral valve regurgitation. There is no mitral valve stenosis. Pulmonic Valve The pulmonic valve is likely normal. Tricuspid Valve Normal tricuspid valve structure. There is trace tricuspid valve regurgitation. The right ventricular systolic pressure is normal. The right ventricular systolic pressure is 18 mmHg. Normal right atrial pressure. There is no evidence of pulmonary hypertension. Great Vessels All visible segments of the aorta are normal in size. The pulmonary artery was not well visualized. There is no dilatation of the ascending aorta measuring 2.90 cm. Venous The inferior vena cava is normal in size and collapses greater than 50% with inspiration. Pericardium/Pleural There is no evidence of pericardial effusion. Prior Study Comparison No prior study available for comparison. Measurements 2D Linear Measurements IVSd: 0.70 0.6-0.9/0.6-1.0 cm LVIDd: 4.79 3.9-5.3/4.2-5.9 cm LVIDd Index: 2.34 2.4-3.2/2.2-3.1 cm/m2 LVIDs: 2.34 2.0-3.6 cm LVPWd: 0.86 0.7-1.1 cm LA Diam: 3.50 2.7-3.8/3.0-4.0 cm LAIDs Index: 1.71 1.5-2.3 cm/m2 LV Mass: 150.86 67-162/88-224 g LV Mass Index: 73.59 43-95/49-115 g/m2 LVOT Diam: 2.00 3.0+(-)1.3 cm 2D Systolic Function EF 4C: 70.80 >55% EF 2C: 61.50 >55% EF BiP: 67.20 >55% Mitral Valve MV Pk E: 1.16 MV PK A: 0.90 MV Decel Time: 141.00 E/A: 1.30 E'Lateral: 13.50 E'Medial: 11.10 E/E' Med: 10.50 E/E' Lat: 8.60 PHT: 41.00 MVA PHT: 5.37 Decel Treasure: 8.18 Aortic Valve AoV Pk Thanh: 1.44 AoV Mn Thanh: 0.98 AoV VTI: 0.33 AoV Pk Grad: 8.00 Aov Mn Grad: 5.00 PAOLA Cont.VTI: 2.52 LVOT LVOT Pk Thanh: 1.16 LVOT Mn Thanh: 0.87 LVOT VTI: 0.26 LVOT Pk Grad: 5.00 LVOT Mn Grad: 3.00 LVOT Diam: 2.00 LVOT Area: 3.14 Diastolic Function MV Pk E: 1.16 MV Pk A: 0.90 E/A: 1.30 E'Medial: 11.10 E/E' Med: 10.50 E' Laterial: 13.50 E/E' Lat: 8.60 Right Ventricle TAPSE (mm): 26.90 TVS' Thanh: 14.00 Tricuspid Valve TR Pk Thanh: 1.60 TR Pk Grad: 10.00 RA Press: 8.00 RVSP: 18.00 Great Vessels Aorta Sinus of Valsalva: 3.40 2.0-3.5 cm Ao Asc: 2.90 2.1-3.4 cm Pulmonary Valve PV Pk Thanh: 1.05 Peak PV Grad: 4.00 Updated in Other Vendor System with Status of Final Etienne Rojo MD electronically signed on 11/29/2024 4:51:46 PM with status of Final
--- OUTSIDE RECORDS SUMMARY | 2024-11-29 10:40 | XMS_ITS | Clinical Summary ---
Author Organization [facility] Address [address] [place] [address] Care Team Providers Care Lion Trainer Name Role Phone TerrySudha baer CODING ANALYST-Cornelia Primary Care Provider [phone] Source Comments PLEASE NOTE, if this patient [...] his grandmother from that meds allergy. Medications sucralfate (CARAFATE) 100 mg/mL suspensionIndica tions:History of Helicobacter pylori infection,Esopha geal dysphagia Take 10 mL by mouth 2 (two) times daily 473 mL 3 11/01/19 25 Active omeprazole (PRILOSEC) [address] capsuleIndicatio ns:History of Helicobacter pylori infection,Esopha geal dysphagia TAKE 2 CAPSULES IN THE MORNING, AND 1 CAPSULE AT NIGHT 270 Capsule 1 11/01/19 25 Active sucralfate (CARAFATE) 100 mg/mL suspension Take 1 g by mouth 2 (two) times daily 05/28/20 24 025 Discontinued(Th erapy completed/Not needed) omeprazole (PRILOSEC) [address] capsule Take 20 mg by mouth once daily 08/12/19 25 025 Discontinued(Re order (E-Cancel Not Sent)) omeprazole (PRILOSEC) [address] capsuleIndicatio ns:History of Helicobacter pylori infection,Esopha geal dysphagia Take 2 tablets in the morning, and 1 tablet at night 90 Capsule 1 11/01/19 25 025 Discontinued Active Problems Problem Noted Date Diagnosed Date Hepatitis B immune 04/16/2024 Immune to varicella 04/16/2024 History of Helicobacter pylori infection 024 Resolved Problems Problem Noted Date Diagnosed Date Resolved Date Anxiety 02/29/2024 02/29/2024 Encounters Date Type Department Care Team Description 10/31/2024 9:00 AM EDT Office Visit [address] [address] Sudha Stewart FNP-C Routine general medical examination at a health care facility (Primary Dx); History of Helicobacter pylori infection; Esophageal dysphagia; Poor vision from Last 3 Months Immunizations Immunization Administration Dates Next Due COVID-19,SARS-COV-2 VACCINE, UNSPECIFIED (US Adm in) 02/01/2024 HEP B, PED/ADOL 02/01/2024,12/19/2023 INFLUENZA, SEASONAL, INJECTABLE 11/11/2023 IPV (IPOL) 11/11/2023 Influenza (FLUBLOK),recombinant,injectable,preservative Free 04/16/2024 YRN COVID-19 VACCINE 11/11/2023 MMR (MMR II/Priorix) 12/19/2023,11/11/2023 Moderna COVID-19 (Spikevax), Mrna, Lnp-s, Pf, 50 Mcg/0.5 Ml, 12yr+ 04/16/2024 TDAP 02/01/2024,12/19/2023 Varicella (Varivax), Live Vaccine 12/19/2023, Social History Tobacco Use Types Packs/Day Years [...] Sign Reading Time Taken Comments Blood Pressure 106/70 10/31/2024 9:04 AM EDT Pulse 71 10/31/2024 9:04 AM EDT Temperature 36.8 ??C (98.2 ??F) 10/31/2024 9:04 AM ED T Respiratory Rate 16 10/31/2024 9:04 AM EDT Oxygen Saturation - - Inhaled Oxygen Concentration - - Weight 90.3 kg (199 lb) 10/31/2024 9:04 AM EDT Height 179 cm (5' 10.47 ) 10/31/2024 9:04 AM EDT Body Mass Index 28.17 10/31/2024 9:04 AM EDT Plan of Treatment Health Maintenance Due Date Last Done Comments Dental Perio Charting 1980 Dental BW 07/06/2025 07/04/2024 Dental Examination 07/06/2025 07/04/2024 Dental Prophy 07/06/2025 07/04/2024 Annual Wellness (Adult): Ind icated (All Coverage) 10/31/2025 10/31/2024 Anxiety Screening 10/31/2025 10/31/2024 Hypertension Screening (#1) 10/31/2025 Tobacco Screening 10/31/2025 10/31/2024 Diabetes Screening 11/01/2027 10/31/2024, 10/31/2024 Dental FMX/Pano 07/06/2029 07/04/2024 Lipid Screening 10/31/2029 10/31/2024 Imm-DTaP/Tdap/Td (3 - Td or Tdap) 01/31/2034 024, 12/19/2023 Imm-Hepatitis B Discontinued 02/01/2024, 12/19/2023 HIV Screening Completed 02/29/2024 Hepatitis B Screening Completed 02/29/2024, 024 Hepatitis C Screening Completed 02/29/2024 [id number] Completed 04/16/2024, 01/17, 11/11/2023 Imm-Influenza Completed 04/16/2024, 11/11/2023 Alcohol and Drug Screen Completed 10/31/2024 Depression Annual Screen Completed 10/31/2024 Procedures Procedure Name Priority Date/Time Associated Diagnosis Comments HEMOGLOBIN GLYCOSYLATED A1C Routine 10/31/2024 9:29 AM EDT Routine general medical examination at a health care facility LIPID PANEL Routine 10/31/2024 9:29 AM EDT Routine general medical examination at a health care facility COMPREHENSIVE METABOLIC PANEL Routine 10/31/2024 9:29 AM EDT Routine general medical examination at a health care facility BLOOD COUNT COMPLETE AUTO&AUTO DIFRNTL WBC Routine 10/31/2024 9:29 AM EDT Routine general medical examination at a health care facility INTRAORAL - COMP SERIES OF RADIOGRAPHIC IMAGES Routine 07/04/2024 4:00 PM EST Caries Complete bony impaction of tooth PROPHYLAXIS - ADULT Routine 07/04/2024 4 :00 PM EST Complete bony impaction of tooth Caries COMP ORAL EVALUATION - NEW/ESTABLISHED PATIENT Routine 07/04/2024 4:00 PM EST Complete bony impaction of tooth Caries HIV 1/2 AG & AB W/RFLX (4TH GEN) Routine 02/29/2024 11:31 AM EDT Refugee health examination HEPATITIS B SURFACE AG, EIA WITH REFLEX CONFIRM Routine 02/29/2024 11:31 AM EDT Refugee health examination HEPATITIS C AB W/RFLX HCV RNA, QT, RT PCR Routine 02/29/2024 11:31 AM EDT Refugee health examination from Last 3 Months or Most Recently Relevant to Health Maintenance Results * BLOOD COUNT COMPLETE AUTO&AUTO DIFRNTL WBC (10/31/2024 9:29 AM EDT) Pathologist [facility] WHITE BLOOD CELL COUNT 5.7 3.8 - 10.8 Thousand/ uL [facility] RED BLOOD CELL COUNT 5.01 4.20 - 5.80 Million/u L [facility] HEMOGLOBIN 14.2 13.2 - 17.1 g/dL [facility] HEMATOCRIT 44.0 38.5 - 50.0 % [facility] MCV 87.8 80.0 - 100.0 fL [facility] MCH 28.3 27.0 - 33.0 pg [facility] MCHC 32.3 32.0 - 36.0 g/dL [facility] Comment: For adults, a slight decrease in the calculated MCHC value (in the range of 30 to 32 g/dL) is most likely not clinically significant; however, it should be interpreted with caution in correlation with other red cell parameters and the patient's clinical condition. RDW 12.5 11.0 - 15.0 % [facility] PLATELET COUNT 215 140 - 400 Thousand/ uL [facility] MPV 10.2 7.5 - 12.5 fL [facility] ABSOLUTE NEUTROPHILS 3,266 1,500 - 7,800 cells/uL [facility] ABSOLUTE LYMPHOCYTES 1,887 850 - 3,900 cells/uL [facility] ABSOLUTE MONOCYTES 450 200 - 950 cells/uL [facility] ABSOLUTE EOSINOPHILS 68 15 - 500 cells/uL [facility] ABSOLUTE BASOPHILS 29 0 - 200 cells/uL [facility] NEUTROPHILS PCT 57.3 % [employer] [facility] LYMPHOCYTES 33.1 % [facility] [employer] [facility] MONOCYTES 7.9 % [facility] [employer] [facility] EOSINOPHILS 1.2 % [facility] [employer] BASOPHILS 0.5 % [facility] [employer] [facility] Blood Blood / Unknown 10/31/2024 9 :29 AM EDT 10/31/2024 9:30 AM EDT Sudha Stewart CODING ANALYST-C LAB - BLOOD DRAW Edited R esult - Final [facility] [address] [address], [facility] [address] [address] * HEMOGLOBIN GLYCOSYLATED A1C (10/31/2024 9:29 AM EDT) HEMOGLOBIN A1C 5.5 <5.7 % [facility] Comment: For the purpose of screening for the presence of diabetes: <5.7% ? Consistent with the absence of diabetes 5.7-6.4% ?Consistent with increased risk for diabetes ?(prediabetes) > or =6.5% ??Consistent with diabetes This assay result is consistent with a decreased risk of diabetes. Currently, no consensus exists regarding use of hemoglobin A1c for diagnosis of diabetes in children. According to [place] Diabetes Association (ADA) guidelines, hemoglobin A1c <7.0% represents optimal control in non- diabetic patients. Different metrics may apply to specific patient populations. Standards of Medical Care in Diabetes(ADA). ?? Blood Blood / Unknown 10/31/2024 9 :29 AM EDT 10/31/2024 9:30 AM EDT Sudha Stewart CODING ANALYST-C LAB - BLOOD DRAW Edited R esult - Final [employer] [address] [place] [id number], [facility] [address] [place] [phone] * (ABNORMAL) LIPID PANEL (10/31/2024 9:29 AM EDT) CHOLESTEROL, TOTAL 192 <200 mg/dL [facility] HDL CHOLESTEROL 44 > OR = 40 mg/dL [facility] TRIGLYCERIDES 87 <150 mg/dL [facility] LDL-CHOLESTEROL 129(H) 99 mg/dL (calc) [facility] Comment: Reference range: <100 Desirable range <100 mg/dL for primary prevention; ?? <70 mg/dL for patients with CHD or diabetic patients with > or = 2 CHD risk factors. LDL-C is now calculated using the Ashley calculation, which is a validated novel method providing better accuracy than the Friedewald equation in the estimation of LDL-C. Evaristo SALAS et al. DEDE. 2013;310(19): 5572-7022 (http://education.Flywheel/faq/JYB306) CHOL/HDLC RATIO 4.4 <5.0 (calc) [facility] NON-HDL CHOLESTEROL 148(H) <130 mg/dL (calc) [facility] Comment: For patients with diabetes plus 1 major ASCVD risk factor, treating to a non-HDL-C goal of <100 mg/dL (LDL-C of <70 mg/dL) is considered a therapeutic option. Blood Blood / Unknown 10/31/2024 9 :29 AM EDT 10/31/2024 9:30 AM EDT Sudha Stewart CODING ANALYST-C LAB - BLOOD DRAW Final Re sult [employer] [address] [place] [phone], [employer] [address] [address] * COMPREHENSIVE METABOLIC PANEL (10/31/2024 9:29 AM EDT) GLUCOSE 95 65 - 99 mg/dL [facility] Comment: ?Fasting reference interval UREA NITROGEN (BUN) 10 7 - 25 mg/dL [facility] CREATININE (blood) 0.76 0.60 - 1.29 mg/dL [facility] EGFR 114 > OR = 60 mL/min/1. 73m2 [facility] BUN/CREATININE RATIO SEE NOTE: [facility] Comment: ?? Not Reported: BUN and Creatinine are within ?? reference range. ? SODIUM 139 135 - 146 mmol/L [facility] POTASSIUM 4.1 3.5 - 5.3 mmol/L [facility] CHLORIDE 106 98 - 110 mmol/L [facility] CARBON DIOXIDE 27 20 - 32 mmol/L [facility] CALCIUM 8.8 8.6 - 10.3 mg/dL [facility] PROTEIN, TOTAL 6.6 6.1 - 8.1 g/dL [facility] ALBUMIN 4.1 3.6 - 5.1 g/dL [facility] GLOBULIN 2.5 1.9 - 3.7 g/dL (calc) [employer] [facility] ALBUMIN/GLOBULI N RATIO 1.6 1.0 - 2.5 (calc) [employer] [facility] BILIRUBIN, TOTAL 1.2 0.2 - 1.2 mg/dL [employer] [facility] ALKALINE PHOSPHATASE 57 36 - 130 U/L [employer] [facility] AST 20 10 - 40 U/L [employer] [facility] ALT 15 9 - 46 U/L [employer] [facility] Blood Blood / Unknown 10/31/2024 9 :29 AM EDT 10/31/2024 9:30 AM EDT [employer] CODING ANALYST-C LAB - BLOOD DRAW Final Re sult Performing Organization Address [facility] de Phone Number [employer] [address] [address], [employer] [address] [phone] * HEPATITIS C AB W/RFLX HCV RNA, QT, RT PCR (02/29/2024 11:31 AM EDT) HEPATITIS C ANTIBODY NON-REACT JOANNA NON-REACT JOANNA [employer] [facility] Comment: HCV antibody was non-reactive. There is no laboratory evidence of HCV infection. In most cases, no further action is required. However, if recent HCV exposure is suspected, a test for HCV RNA (test code 08351) is suggested. For additional information please refer to http://education.Meedor/faq/MNB66p1 (This link is being provided for informational/ educational purposes only.) Blood Blood / Unknown 02/29/2024 1 1:31 AM EDT 02/29/2024 11:32 AM EDT Narrative [employer] [facility] - 03/04/2024 10:52 PM EDT FASTING:UNKNOWN COLLECTION KIT GIVEN TO PATIENT. PATIENT ADVISED TO RETURN. Sudha Stewart CODING ANALYST-C LAB - BLOOD DRAW Edited R esult - Final Performing Organization Address [facility]/ZIP Co de Phone Number [employer] [address] [address], [employer] [address] [phone] * HIV 1/2 AG & AB W/RFLX (4TH GEN) (02/29/2024 11:31 AM EDT) HIV AG/AB, 4TH GEN NON-REAC TIVE NON-REAC TIVE [employer] [facility] Comment: HIV-1 antigen and HIV-1/HIV-2 antibodies were [...] ?? For additional information please refer to http://education.Meedor/faq/EVJ797 (This link is being provided for informational/ educational purposes only.) The performance of this assay has not been clinically validated in patients less than 2 years old. Blood Blood / Unknown 02/29/2024 1 1:31 AM EDT 02/29/2024 11:32 AM EDT Narrative [facility] - 03/04/2024 10:52 PM EDT FASTING:UNKNOWN COLLECTION KIT GIVEN TO PATIENT. PATIENT ADVISED TO RETURN. Sudha Stewart CODING ANALYST-C LAB - BLOOD DRAW Final Re sult [facility] [address] [address], [employer] [address] [address] * HEPATITIS B SURFACE AG, EIA WITH REFLEX CONFIRM (02/29/2024 11:31 AM EDT) Pathologist [facility] HEPATITIS B SURFACE ANTIGEN NON-REACT JOANNA NON-REACT JOANNA [employer] [facility] COMMENT [facility] [employer] [facility] Blood Blood / Unknown 02/29/2024 1 1:31 AM EDT 02/29/2024 11:32 AM EDT Narrative [facility] - 03/04/2024 10:52 PM EDT FASTING:UNKNOWN COLLECTION KIT GIVEN TO PATIENT. PATIENT ADVISED TO RETURN. For additional information, please refer to http://education.Meedor/faq/EXR032 (This link is being provided for informational/ educational purposes only.) us Sudha SCHROEDERP-C LAB - BLOOD DRAW Edited R esult - Final [facility] [address] [address], [facility] [address] [place] [address] from Last 3 Months or Most Recently Relevant to Health Maintenance Insurance [facility] [employer] [employer] [place] MED[place] DENTAL Care Teams Lion Trainer Relationship Specialty Start Date End Date Sudha Stewart FNP-C [address] [place] [address] PCP - General Internal Medicine 07/04/24
== END ==
LOC: HO.CARD 09:57
PROVIDERS: PCP Registered Nurse; Visit Provider Internal Medicine
DX: R00.2 Palpitations (principal)
CPT/HCPCS: 93270; 93306

== ENCOUNTER → 2024-11-29 10:13 | Outpatient (BNV) | payer MEDICAID, SELFPAY | PROVIDERS: PCP Registered Nurse; Visit Provider Internal Medicine Cardiovascular Disease | DX: R00.2 Palpitations (principal) | CPT/HCPCS: 93306 ==

== ENCOUNTER 2024-12-02 11:39 | Outpatient (AMB) | payer MEDICAID, SELFPAY ==
--- NOTE | 2024-12-02 11:41 | A.OFFVIS_ITS ---
Vital Signs 12/02/24 11:42 Height 5 ft 9 in Weight 189 lb 9.561 oz BMI 28.0 BP 108/69 Blood Pressure Location Lt brachial Position Sitting Pulse 80 Intake Visit Reasons: 4 month follow up Intake Note: Jerry presents in the office as a 4 month follow up. CC: States that he has everything - stomach pains and sometimes he has diarrhea that he feels is due to carafate. Contract Administration Specialist Required: No Allergies No Known Allergies Allergy (Verified 12/02/24 11:42) HPI HPI 4 month follow up: Details: 44 yr old m here for f/u RECAP He had issues with stress and GERD 'he had many tests in [place] and [place] incl EGD was put on paroxetine Recently he feels more reflux worse he has disabled daughter, stressful he feels food getting stuck he has to drink water to push it down he has water and bad taste in mouth he has nausea he has constipation, no blood in stool increased stool frequency at times he takes omeprazole 40 mg prn --last took yesterday he has fatigue he has canker sores H pylori breath test--negative EGD 05/12: balloon dilation, path neg US 10/11: unremarkable INTERIM: He has been having several spots of pain, lower chest, ruq, and mid back he had cardiac eval--neg 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 VITAL SIGNS:see workflow HEENT: Nonicteric sclerae, PERRLA, EOMI. Oropharynx clear. Moist mucous membranes. Conjunctivae appear well perfused. No thyroid mass. CHEST: Chest wall is nontender. HEART: Regular rate and rhythm without murmurs. LUNGS: Clear to auscultation bilaterally. ABDOMEN: Soft, positive bowel sounds, nontender, no organomegaly.no flank tenderness SKIN: No rash, no excessive bruising, petechiae, or purpura. NEUROLOGIC: Cranial nerves II-XII intact without motor/sensory deficit. Psych: normal affect A/P: 1/ atypical body pain, weight loss and GERD with regurg, uncertain if related or not, US neg, labs with mild anemia-- PLAN: 1/ CT with PO and IV contrast r/o neoplasia, 2/ RAST testing 0showed me a picture of erythematous rash affecting neck and abdomen, on and off 3/ might repeat EGD with dialtion and re eval of esophagus PFSH Medical History GERD (gastroesophageal reflux disease) Palpitations Surgical History History of esophagogastroduodenoscopy (EGD) Family History Mother Lung cancer Social History Unable to assess alcohol history related to: Unable to respond Patient Tobacco Use Status: Former Tobacco user Physical Exam Vital Signs: Last Vital Signs Pulse 80 12/02/24 11:42 BP 108/69 12/02/24 11:42 BMI result Body Mass Index 28.0 Assessment & Plan Assessment & Plan (1) Upper abdominal pain: Code(s): R10.10 - Upper abdominal pain, unspecified Category: Medical Plan: as above Orders: Orders CT abdomen pelvis w IV con Today R10.10 - Upper abdominal pain, unspecified Rast Allergen Today Z91.018 - Allergy to other foods Medications: New barium sulfate 2%(w/v) (Readi-Cat 2) 900 mL PO ONCE 900 mL 0RF esomeprazole magnesium 40 mg PO DAILY 60 caps 1RF Discontinued omeprazole Discontinued Reason: Doctor's Order 20 mg PO DAILY 90 caps 2RF Coding Level of Care Code Est Pt Level 4 (20107) Diagnoses Upper abdominal pain R10.10
[2024-12-02 11:42] VITALS: BP 108/69; PULSE 80; BMI 28.0
--- OUTSIDE RECORDS SUMMARY | 2024-12-02 13:14 | XMS_ITS | Clinical Summary ---
Author Organization [facility] Address [address] [place] [address] Care Team Providers Care Stockroom Coordinator Name Role Phone Sudha Stewart Primary Care Provider [phone] [phone] Source Comments PLEASE NOTE, if this patient [...] meds allergy. Medications sucralfate (CARAFATE) 100 mg/mL suspensionIndicat ions:History of Helicobacter pylori infection,Esophag eal dysphagia Take 10 mL by mouth 2 (two) times daily 473 mL 3 5 Active omeprazole (PRILOSEC) [address] capsuleIndication s:History of Helicobacter pylori infection,Esophag eal dysphagia TAKE 2 CAPSULES IN THE MORNING, AND 1 CAPSULE AT NIGHT 270 Capsule 1 5 Active Active Problems Problem Noted Date Diagnosed Date Hepatitis B immune 04/16/2024 Immune to varicella 04/16/2024 History of Helicobacter pylori infection 024 Resolved Problems Problem Noted Date Diagnosed Date Resolved Date Anxiety 02/29/2024 02/29/2024 Encounters Date Type Department Care Team Description 10/31/2024 9:00 AM EDT Office Visit [address] [address] Sudha Stewart FNP-C Routine general medical examination [...] Imm-DTaP/Tdap/Td (3 - Td or Tdap) 01/31/2034 , 12/19/2023 Imm-Hepatitis B Discontinued 02/01/2024, 12/19/2023 HIV Screening Completed 02/29/2024 Hepatitis B Screening Completed 02/29/2024, 024 Hepatitis C Screening Completed 02/29/2024 [id number] Completed 04/16/2024, 01/17, 11/11/2023 Imm-Influenza Completed 04/16/2024, [...] EDT [facility] BLOOD COUNT COMPLETE AUTO&AUTO DIFRNTL WBC Routine 10/31/2024 9:29 AM EDT Routine general medical examination at a [facility] INTRAORAL - COMP SERIES OF [...] AUTO&AUTO DIFRNTL WBC (10/31/2024 9:29 AM EDT) WHITE BLOOD CELL COUNT 5.7 3.8 - 10.8 Thousand/ uL [facility] RED BLOOD CELL COUNT 5.01 4.20 - 5.80 Million/u L [facility] HEMOGLOBIN 14.2 13.2 - 17.1 g/dL [facility] HEMATOCRIT 44.0 38.5 - 50.0 % [facility] MCV 87.8 80.0 - 100.0 fL [facility] MCH 28.3 27.0 - 33.0 pg [facility] MCHC 32.3 32.0 - 36.0 g/dL [facility] Comment: For adults, a slight decrease in the calculated MCHC value (in the range of 30 to 32 g/dL) is most likely not clinically significant; however, it should be interpreted with caution in correlation with other red cell parameters and the patient's clinical condition. RDW 12.5 11.0 - 15.0 % [facility] PLATELET COUNT 215 140 - 400 Thousand/ uL [facility] MPV 10.2 7.5 - 12.5 fL [facility] [employer] ABSOLUTE NEUTROPHILS 3,266 1,500 - 7,800 cells/uL [facility] ABSOLUTE LYMPHOCYTES 1,887 850 - 3,900 cells/uL [facility] ABSOLUTE MONOCYTES 450 200 - 950 cells/uL [facility] ABSOLUTE EOSINOPHILS 68 15 - 500 cells/uL [facility] ABSOLUTE BASOPHILS 29 0 - 200 cells/uL [facility] NEUTROPHILS PCT 57.3 % QUES T [employer] LYMPHOCYTES 33.1 % [facility] DI [employer] MONOCYTES 7.9 % [facility] DIAG [employer] EOSINOPHILS 1.2 % [facility] [employer] BASOPHILS 0.5 % [employer] DIAG [employer] Blood Blood / Unknown 10/31/2024 9 :29 AM EDT 10/31/2024 9:30 AM EDT Sudha Stewart TIP INSERTER-C LAB - BLOOD DRAW Danette R mickey - Final [email or web address] [address] [place] [address], [facility] [address] [place] [phone] * HEMOGLOBIN GLYCOSYLATED A1C (10/31/2024 9:29 AM EDT) HEMOGLOBIN A1C 5.5 <5.7 % [facility] Comment: For the purpose of screening for the presence of diabetes: <5.7% ? Consistent with the absence of diabetes 5.7-6.4% ?Consistent with increased risk for diabetes ?(prediabetes) > or =6.5% ??Consistent with diabetes This assay result is consistent with a decreased risk of diabetes. Currently, no consensus exists regarding use of hemoglobin A1c for diagnosis of diabetes in children. According to [place] Diabetes Association (ADA) guidelines, hemoglobin A1c <7.0% represents optimal control in non- diabetic patients. Different metrics may apply to specific patient populations. Standards of Medical Care in Diabetes(ADA). ?? Blood Blood / Unknown 10/31/2024 9 :29 AM EDT 10/31/2024 9:30 AM EDT Sudha Stewart TIP INSERTER-C LAB - BLOOD DRAW Edited R esult - Final [email or web address] [address] [place] [address], [facility] [address] [address] * (ABNORMAL) LIPID PANEL (10/31/2024 9:29 AM EDT) [facility] CHOLESTEROL, TOTAL 192 <200 mg/dL [facility] HDL CHOLESTEROL 44 > OR = 40 mg/dL [facility] TRIGLYCERIDES 87 <150 mg/dL [facility] LDL-CHOLESTEROL 129(H) 99 mg/dL (calc) [facility] Comment: Reference range: <100 Desirable range <100 mg/dL for primary prevention; ?? <70 mg/dL for patients with CHD or diabetic patients with > or = 2 CHD risk factors. LDL-C is now calculated using the Evaristo-Chen calculation, which is a validated novel method providing better accuracy than the Friedewald equation in the estimation of LDL-C. Evaristo SALAS et al. DEDE. 2013;310(19): 6446-5564 (http://education.Quanterix.Linksify/faq/QGE715) CHOL/HDLC RATIO 4.4 <5.0 (calc) [facility] NON-HDL CHOLESTEROL 148(H) <130 mg/dL (calc) [facility] Comment: For patients with diabetes plus 1 major ASCVD risk factor, treating to a non-HDL-C goal of <100 mg/dL (LDL-C of <70 mg/dL) is considered a therapeutic option. Blood Blood / Unknown 10/31/2024 9 :29 AM EDT 10/31/2024 9:30 AM EDT Sudha Stewart TIP INSERTER-C LAB - BLOOD DRAW Final Re sult [facility] [address] [address], [facility] [address] [place] [address] * COMPREHENSIVE METABOLIC PANEL (10/31/2024 9:29 AM EDT) Pathologist [facility] GLUCOSE 95 65 - 99 mg/dL [facility] Comment: ?Fasting reference interval UREA NITROGEN (BUN) 10 7 - 25 mg/dL [facility] CREATININE (blood) 0.76 0.60 - 1.29 mg/dL [facility] EGFR 114 > OR = 60 mL/min/1. 73m2 [facility] BUN/CREATININE RATIO SEE NOTE: [facility] Comment: ?? Not Reported: BUN and Creatinine are within ?? reference range. ? SODIUM 139 135 - 146 mmol/L [facility] POTASSIUM 4.1 3.5 - 5.3 mmol/L [facility] CHLORIDE 106 98 - 110 mmol/L [facility] CARBON DIOXIDE 27 20 - 32 mmol/L [facility] CALCIUM 8.8 8.6 - 10.3 mg/dL [facility] PROTEIN, TOTAL 6.6 6.1 - 8.1 g/dL [facility] [employer] ALBUMIN 4.1 3.6 - 5.1 g/dL [facility] GLOBULIN 2.5 1.9 - 3.7 g/dL (calc) [facility] ALBUMIN/GLOBULI N RATIO 1.6 1.0 - 2.5 (calc) [facility] BILIRUBIN, TOTAL 1.2 0.2 - 1.2 mg/dL [facility] ALKALINE PHOSPHATASE 57 36 - 130 U/L [facility] AST 20 10 - 40 U/L [facility] ALT 15 9 - 46 U/L [facility] Blood Blood / Unknown 10/31/2024 9 :29 AM EDT 10/31/2024 9:30 AM EDT Sudha Sernari TIP INSERTER-C LAB - BLOOD DRAW Final Re sult Performing Organization Address [facility] Co de Phone Number [facility] [address] [address], [facility] [address] [address] * HEPATITIS C AB W/RFLX HCV RNA, QT, RT PCR (02/29/2024 11:31 AM EDT) HEPATITIS C ANTIBODY NON-REACT JOANNA NON-REACT JOANNA [facility] Comment: HCV antibody was non-reactive. There is no laboratory evidence of HCV infection. In most cases, no further action is required. However, if recent HCV exposure is suspected, a test for HCV RNA (test code 81886) is suggested. For additional information please refer to http://education.iQVCloud/faq/IQD46n4 (This link is being provided for informational/ educational purposes only.) Blood Blood / Unknown 02/29/2024 1 1:31 AM EDT 02/29/2024 11:32 AM EDT Narrative [facility] - 03/04/2024 10:52 PM EDT FASTING:UNKNOWN COLLECTION KIT GIVEN TO PATIENT. PATIENT ADVISED TO RETURN. us Sudha Stewart TIP INSERTER-C LAB - BLOOD DRAW Edited R esult - Final Performing Organization Address [facility] Co de Phone Number [facility] [address] [address], [facility] [address] [address] * HIV 1/2 AG & AB W/RFLX (4TH GEN) (02/29/2024 11:31 AM EDT) HIV AG/AB, 4TH GEN NON-REAC TIVE NON-REAC TIVE [facility] Comment: HIV-1 antigen and HIV-1/HIV-2 antibodies [...] ?? For additional information please refer to http://Qzzr.iQVCloud/faq/LAL168 (This link is being provided for informational/ educational purposes only.) The performance of this assay has not been clinically validated in patients less than 2 years old. Blood Blood / Unknown 02/29/2024 1 1:31 AM EDT 02/29/2024 11:32 AM EDT Narrative [email or web address] - 03/04/2024 10:52 PM EDT FASTING:UNKNOWN COLLECTION KIT GIVEN TO PATIENT. PATIENT ADVISED TO RETURN. [employer] InternationalP-C LAB - BLOOD DRAW Final Re sult Performing Organization Address [facility] [[email or web address]] de Phone Number [email or web address] [address] [place] [address], [employer] [address] [address] * HEPATITIS B SURFACE AG, EIA WITH REFLEX CONFIRM (02/29/2024 11:31 AM EDT) HEPATITIS B SURFACE ANTIGEN NON-REACT JOANNA NON-REACT JOANNA [employer] [facility] COMMENT [employer] DIAG [employer] [facility] Blood Blood / Unknown 02/29/2024 1 1:31 AM EDT 02/29/2024 11:32 AM EDT Narrative [email or web address] - 03/04/2024 10:52 PM EDT FASTING:UNKNOWN COLLECTION KIT GIVEN TO PATIENT. PATIENT ADVISED TO RETURN. For additional information, please refer to http://Qzzr.iQVCloud/faq/WDD777 (This link is being provided for informational/ educational purposes only.) [employer] InternationalP-C LAB - BLOOD DRAW Edited R esult - Final Performing Organization Address [facility] [[email or web address]] de Phone Number [email or web address] [address] [place] [address], [employer] [address] [address] from Last 3 Months or Most Recently Relevant to Health Maintenance Insurance [address] [place] Care Teams Stockroom Coordinator Relationship Specialty Start Date End Date Sudha Stewart FNP-C [facility] [place] [address] PCP - General Internal Medicine 07/04/24
== END 2024-12-02 12:08 | disposition home or self-care (01) ==
LOC: HO.HGI 11:40
PROVIDERS: PCP Registered Nurse; Visit Provider Internal Medicine Gastroenterology
DX: R10.10 Upper abdominal pain, unspecified (principal)
CPT/HCPCS: 99214

== ENCOUNTER 2024-12-02 11:39 | Outpatient (REF) | payer MEDICAID, SELFPAY ==
[2024-12-02 12:44] LABS: MANUAL DIFF FLAG NO
[2024-12-02 12:55] LABS: Basophils Percent Auto 0.2 % (0-2); Eosinophils Absolute Auto 0.1 X10*3/uL (0.0-0.4); Eosinophils Percent Auto 1.3 % (0-4); Hematocrit 42.3 % (42.0-52.0); Hemoglobin 13.9 g/dl (14.0-18.0); Lymphocytes Absolute Auto 1.8 X10*3/uL (1.2-4.9); Lymphocytes Percent Auto 38.1 % (20-40); Mean Corpuscular HGB Conc 32.9 g/dl (31.0-36.0); Mean Corpuscular Hemoglobin 27.6 pg (27.0-33.0); Mean Corpuscular Volume 84.1 fL (80.0-98.0); Mean Platelet Volume 10.1 fL (9.4-12.4); Monocytes Absolute Auto 0.3 X10*3/uL (0.1-1.2); Monocytes Percent Auto 7.4 % (2-11); Neutrophils Absolute Auto 2.5 x10*3/uL (2.0-8.3); Platelet Count 225 X10*3/uL (160-400); Red Blood Count 5.03 X10*6/uL (4.60-5.80); Red Cell Distribution Width 12.6 % (11.0-16.0); White Blood Count 4.6 X10*3/uL (4.8-10.8)
[2024-12-02 13:15] LABS: Appearance Urine Clear; Color Urine Yellow; Glucose Urine UA Negative (Negative); Leukocyte Esterase Urine Negative (Negative); Nitrite Urine Negative (Negative); Urine Blood Negative (Negative); Urine Ketones Negative (Negative); Urine Protein Negative (Neg-Trace)
[2024-12-02 13:22] LABS: Alanine Aminotransferase 17 U/L (0-40); Albumin Level 4.4 g/dL (3.5-5.0); Alkaline Phosphatase 61 U/L (39-117); Anion Gap 10 (12-20); Aspartate Amino Transferase 18 U/L (5-37); Bilirubin Total 1.1 mg/dL (0.0-1.0); Blood Urea Nitrogen 14 mg/dL (9-16); C Reactive Protein 0.14 mg/dL (< or = 0.50); Calcium 9.2 mg/dL (8.4-10.2); Carbon Dioxide 26 mmol/L (22-29); Chloride 107 mmol/L (96-108); Estimated Glomerular Filt Rate > 60; Glucose Random 95 mg/dL (60-115); Potassium 4.3 mmol/L (3.3-5.1); Sodium 139 mmol/L (135-145)
[2024-12-04 02:08] LABS: Class Almond 0; Class Brazil Nut 0; Class Cashew 0; Class Codfish 0; Class Cow's Milk 0; Class Egg white 0; Class Hazelnut 0; Class Macadamia Nut 0; Class Peanut 0; Class Salmon 0; Class Scallop 0; Class Sesame Seed 0; Class Shrimp 0; Class Soybean 0; Class Tuna 0; Class Walnut 0; Class Wheat 0; F001-IgE Egg White <0.10 kU/L; F002-IgE Milk <0.10 kU/L; F003-IgE Codfish <0.10 kU/L; F004-IgE Wheat <0.10 kU/L; F010-IgE Sesame Seed <0.10 kU/L; F013-IgE Peanut <0.10 kU/L; F014-IgE Soybean <0.10 kU/L; F017-IgE Hazelnut (Filbert) <0.10 kU/L; F018-IgE Brazil Nut <0.10 kU/L; F020-IgE Almond <0.10 kU/L; F024-IgE Shrimp <0.10 kU/L; F040-IgE Tuna <0.10 kU/L; F041 IgE Salmon <0.10 kU/L; F202-IgE Cashew Nut <0.10 kU/L; F256-IgE Walnut <0.10 kU/L; F338-IgE Scallop <0.10 kU/L; F345-IgE Macadmia Nut <0.10 kU/L
== END 2024-12-02 11:40 | disposition home or self-care (01) ==
LOC: HO.LAB 11:39
PROVIDERS: PCP Registered Nurse; Visit Provider Internal Medicine Gastroenterology
DX: R10.10 Upper abdominal pain, unspecified (principal); K75.81 Nonalcoholic steatohepatitis (NASH); Z91.018 Allergy to other foods; R30.0 Dysuria
CPT/HCPCS: 36415; 80053; 81003; 85025; 86003; 86140; 99212

== ENCOUNTER 2024-12-04 06:58 | Outpatient (REF) | payer MEDICAID, SELFPAY ==
--- NOTE | ~2024-12-04 | CT_ITS ---
EXAMINATION: CT ABDOMEN AND PELVIS WITH CONTRAST CLINICAL INFORMATION: Right upper quadrant abdominal pain, as well as pain in the lower chest and mid back. Weight loss. Poor appetite. 44-year-old male. COMPARISON: No prior CT. Abdomen ultrasound 10/02/2024. TECHNIQUE: Multidetector volumetric images were obtained from the superior aspect of the liver through the pubic symphysis following administration 85 mL of Omnipaque 350 intravenous contrast. Sagittal and coronal reformatted images were obtained on the technologist's workstation. Oral contrast: Yes This CT examination was performed using dose optimization techniques as appropriate, variously including the following: *Automated exposure control *Adjustment of mA and/or kV according to patient size (this includes techniques or standardized protocols for targeted exams where dose is matched to indication/reason for exam; i.e. extremities or head) *Use of iterative reconstruction technique FINDINGS: LUNG BASES: Lung bases are clear. There are no effusions. Heart size is normal. Normal GE junction. LIVER, GALLBLADDER, AND BILIARY TREE: The liver is normal in size, shape, and attenuation. No focal hepatic lesion or biliary ductal dilatation is present. The gallbladder is unremarkable with no evidence of radiopaque gallstones, gallbladder wall thickening, or obvious pericholecystic inflammatory changes. PANCREAS: Unremarkable. SPLEEN: Unremarkable. ADRENAL GLANDS: Unremarkable. KIDNEYS AND URETERS: The kidneys are normal in size, shape, and attenuation. No hydronephrosis, hydroureter, or calculi seen. No perinephric stranding. BLADDER: Poorly distended, although grossly normal. GASTROINTESTINAL TRACT: There is a small second segment duodenal diverticulum. The stomach is largely decompressed. Small bowel is normal in caliber and course. No inflammation or wall thickening. Normal appendix is visualized. Colon is normal in caliber, course, and appearance without wall thickening or inflammation. Normal rectum. ABDOMINAL WALL: No significant hernia is appreciated. LYMPH NODES: No abnormal lymph nodes. VASCULAR: Unremarkable. PELVIC VISCERA: The prostate and seminal vesicles are unremarkable. OSSEOUS STRUCTURES: No suspicious lytic or blastic bone lesions. CT/CT abdomen pelvis w IV con IMPRESSION: 1. No acute findings in the abdomen or pelvis. Normal examination. Electronically signed by: Oral Parks MD 12/04/2024 09:53 AM EDT
--- OUTSIDE RECORDS SUMMARY | 2024-12-04 07:00 | XMS_ITS | Clinical Summary ---
Author Organization [facility] Address [address] [place] [address] Care Team Providers Care Edging Supervisor Name Role Phone Sudha Stewart Primary Care Provider [phone] Source Comments PLEASE NOTE, if this patient [...] Description 10/31/2024 9:00 AM EDT Office Visit [address] [address] Sudha Stewart FNP-C Routine general medical examination [...] 71 10/31/2024 9:04 AM EDT Temperature 36.8 C (98.2 F) 10/31/2024 9:04 AM EDT Respiratory Rate 16 10/31/2024 9:04 AM EDT [...] 02/29/2024, 024 Hepatitis C Screening Completed 02/29/2024 [id number] Completed 04/16/2024, 01/17, 11/11/2023 Imm-Influenza Completed 04/16/2024, [...] EDT Routine general medical examination at a [facility] BLOOD COUNT COMPLETE AUTO&AUTO DIFRNTL WBC Routine 10/31/2024 9:29 AM EDT Routine general medical examination at a [facility] INTRAORAL - COMP SERIES OF [...] DIFRNTL WBC (10/31/2024 9:29 AM EDT) Pathologist [facility] WHITE BLOOD CELL COUNT 5.7 3.8 - 10.8 Thousand/ uL [facility] RED BLOOD CELL COUNT 5.01 4.20 - 5.80 Million/u L [facility] HEMOGLOBIN 14.2 13.2 - 17.1 g/dL [employer] [facility] HEMATOCRIT 44.0 38.5 - 50.0 % [facility] MCV 87.8 80.0 - 100.0 fL [facility] MCH 28.3 27.0 - 33.0 pg [facility] MCHC 32.3 32.0 - 36.0 g/dL [employer] [facility] Comment: For adults, a slight decrease in the calculated MCHC value (in the range of 30 to 32 g/dL) is most likely not clinically significant; however, it should be interpreted with caution in correlation with other red cell parameters and the patient's clinical condition. RDW 12.5 11.0 - 15.0 % [employer] PLATELET COUNT 215 140 - 400 Thousand/ uL [employer] MPV 10.2 7.5 - 12.5 fL [employer] ABSOLUTE NEUTROPHILS 3,266 1,500 - 7,800 cells/uL [employer] ABSOLUTE LYMPHOCYTES 1,887 850 - 3,900 cells/uL [employer] ABSOLUTE MONOCYTES 450 200 - 950 cells/uL [employer] ABSOLUTE EOSINOPHILS 68 15 - 500 cells/uL [employer] ABSOLUTE BASOPHILS 29 0 - 200 cells/uL [employer] NEUTROPHILS PCT 57.3 % QUES T [employer] LYMPHOCYTES 33.1 % [facility] DI [employer] MONOCYTES 7.9 % [facility] DIAG [employer] EOSINOPHILS 1.2 % [facility] [employer] BASOPHILS 0.5 % [employer] DIAG [employer] Blood Blood / Unknown 10/31/2024 9 :29 AM EDT 10/31/2024 9:30 AM EDT Sudha Stewart HANDBAG OPERATOR-C LAB - BLOOD DRAW Edited R esult - Final [facility] [address] [place] [address], [employer] [address] [place] [phone] * HEMOGLOBIN GLYCOSYLATED A1C (10/31/2024 9:29 AM EDT) HEMOGLOBIN A1C 5.5 <5.7 % [employer] [facility] Comment: For the purpose of screening for the presence of diabetes: <5.7% Consistent with the absence of diabetes 5.7-6.4% Consistent with increased risk for diabetes (prediabetes) > or =6.5% Consistent with diabetes This assay result is consistent with a decreased risk of diabetes. Currently, no consensus exists regarding use of hemoglobin A1c for diagnosis of diabetes in children. According to [place] Diabetes Association (ADA) guidelines, hemoglobin A1c <7.0% represents optimal control in non- diabetic patients. Different metrics may apply to specific patient populations. Standards of Medical Care in Diabetes(ADA). Blood Blood / Unknown 10/31/2024 9 :29 AM EDT 10/31/2024 9:30 AM EDT Sudha Sernari HANDBAG OPERATOR-C LAB - BLOOD DRAW Edited R esult - Final Performing Organization Address [facility]/ZIP Co de Phone Number [facility] [address] [address], [facility] [address] [address] * (ABNORMAL) LIPID PANEL (10/31/2024 9:29 AM EDT) CHOLESTEROL, TOTAL 192 <200 mg/dL [facility] HDL CHOLESTEROL 44 > OR = 40 mg/dL [facility] TRIGLYCERIDES 87 <150 mg/dL [facility] LDL-CHOLESTEROL 129(H) 99 mg/dL (calc) [facility] Comment: Reference range: <100 Desirable range <100 mg/dL for primary prevention; <70 mg/dL for patients with CHD or diabetic patients with > or = 2 CHD risk factors. LDL-C is now calculated using the Evaristo-Chen calculation, which is a validated novel method providing better accuracy than the Friedewald equation in the estimation of LDL-C. Evaristo SS et al. DEDE. 2013;310(19): 8590-8193 (http://education.AndroJek/faq/ZFF494) CHOL/HDLC RATIO 4.4 <5.0 (calc) [facility] NON-HDL CHOLESTEROL 148(H) <130 mg/dL (calc) [facility] Comment: For patients with diabetes plus 1 major ASCVD risk factor, treating to a non-HDL-C goal of <100 mg/dL (LDL-C of <70 mg/dL) is considered a therapeutic option. Blood Blood / Unknown 10/31/2024 9 :29 AM EDT 10/31/2024 9:30 AM EDT Sudha Stewart HANDBAG OPERATOR-C LAB - BLOOD DRAW Final Re sult Performing Organization Address [facility]/ZIP Co de Phone Number [facility] [address] [address], [facility] [address] [place] [address] * COMPREHENSIVE METABOLIC PANEL (10/31/2024 9:29 AM EDT) GLUCOSE 95 65 - 99 mg/dL [facility] Comment: Fasting reference interval UREA NITROGEN (BUN) 10 7 - 25 mg/dL [facility] CREATININE (blood) 0.76 0.60 - 1.29 mg/dL [facility] EGFR 114 > OR = 60 mL/min/1. 73m2 [facility] BUN/CREATININE RATIO SEE NOTE: [facility] Comment: Not Reported: BUN and Creatinine are within reference range. SODIUM 139 135 - 146 mmol/L [facility] POTASSIUM 4.1 3.5 - 5.3 mmol/L [facility] CHLORIDE 106 98 - 110 mmol/L [facility] CARBON DIOXIDE 27 20 - 32 mmol/L [facility] CALCIUM 8.8 8.6 - 10.3 mg/dL [facility] PROTEIN, TOTAL 6.6 6.1 - 8.1 g/dL [facility] ALBUMIN 4.1 3.6 - 5.1 g/dL [facility] GLOBULIN 2.5 1.9 - 3.7 g/dL (calc) [facility] ALBUMIN/GLOBULI N RATIO 1.6 1.0 - 2.5 (calc) [facility] BILIRUBIN, TOTAL 1.2 0.2 - 1.2 mg/dL [facility] ALKALINE PHOSPHATASE 57 36 - 130 U/L [facility] AST 20 10 - 40 U/L [facility] ALT 15 9 - 46 U/L [facility] Blood Blood / Unknown 10/31/2024 9 :29 AM EDT 10/31/2024 9:30 AM EDT us Sudha Stewart HANDBAG OPERATOR-C LAB - BLOOD DRAW Final Re sult Performing Organization Address [facility]/ZIP Co de Phone Number [facility] [address] [address], [facility] [address] [place] [address] * HEPATITIS C AB W/RFLX HCV RNA, QT, RT PCR (02/29/2024 11:31 AM EDT) HEPATITIS C ANTIBODY NON-REACT JOANNA NON-REACT JOANNA [employer] [facility] Comment: HCV antibody was non-reactive. There is no laboratory evidence of HCV infection. In most cases, no further action is required. However, if recent HCV exposure is suspected, a test for HCV RNA (test code 05556) is suggested. For additional information please refer to http://Milo.PolyInnovations/faq/CWR31w4 (This link is being provided for informational/ educational purposes only.) Blood Blood / Unknown 02/29/2024 1 1:31 AM EDT 02/29/2024 11:32 AM EDT Narrative [employer] [facility] - 03/04/2024 10:52 PM EDT FASTING:UNKNOWN COLLECTION KIT GIVEN TO PATIENT. PATIENT ADVISED TO RETURN. Sudha Stewart HANDBAG OPERATOR-C LAB - BLOOD DRAW Edited R esult - Final [employer] [address] [address], [facility] [address] [address] * HIV 1/2 AG & AB W/RFLX (4TH GEN) (02/29/2024 11:31 AM EDT) Pathologist [facility] HIV AG/AB, 4TH GEN NON-REAC TIVE NON-REAC TIVE [employer] [facility] Comment: HIV-1 antigen and HIV-1/HIV-2 antibodies were not detected. There is no laboratory evidence of HIV infection. PLEASE NOTE: This information has been disclosed to you from records whose confidentiality may be protected by state law. If your state requires such protection, then the state law prohibits you from making any further disclosure of the information without the specific written consent of the person to whom it pertains, or as otherwise permitted by law. A general authorization for the release of medical or other information is NOT sufficient for this purpose. For additional information please refer to http://education.PolyInnovations/faq/TWU813 (This link is being provided for informational/ educational purposes only.) The performance of this assay has not been clinically validated in patients less than 2 years old. Blood Blood / Unknown 02/29/2024 1 1:31 AM EDT 02/29/2024 11:32 AM EDT Narrative [employer] [facility] - 03/04/2024 10:52 PM EDT FASTING:UNKNOWN COLLECTION KIT GIVEN TO PATIENT. PATIENT ADVISED TO RETURN. [employer] HANDBAG OPERATOR-C LAB - BLOOD DRAW Final Re sult Performing Organization Address [facility] Co de Phone Number [facility] [address] [address], [employer] [address] [address] * HEPATITIS B SURFACE AG, EIA WITH REFLEX CONFIRM (02/29/2024 11:31 AM EDT) HEPATITIS B SURFACE ANTIGEN NON-REACT JOANNA NON-REACT JOANNA [facility] COMMENT [employer] [facility] Blood Blood / Unknown 02/29/2024 1 1:31 AM EDT 02/29/2024 11:32 AM EDT Narrative [employer] [facility] - 03/04/2024 10:52 PM EDT FASTING:UNKNOWN COLLECTION KIT GIVEN TO PATIENT. PATIENT ADVISED TO RETURN. For additional information, please refer to http://education.PolyInnovations/faq/YHL201 (This link is being provided for informational/ educational purposes only.) [employer] HANDBAG OPERATOR-C LAB - BLOOD DRAW Edited R esult - Final Performing Organization Address [facility] Co de Phone Number [facility] [address] [address], [employer] [address] [address] from Last 3 Months or Most Recently Relevant to Health Maintenance Insurance [address] [employer] [place] Care Teams Edging Supervisor Relationship Specialty Start Date End Date Sudha Stewart FNP-C [address] [place] [address] PCP - General Internal Medicine 07/04/24
[2024-12-04] MEDS: iohexoL 350 MG/ML 100 ML INFUS..BTL 85 ML IV (09:30)
== END 2024-12-04 06:59 | disposition home or self-care (01) ==
LOC: HO.CT 06:58
PROVIDERS: Visit Provider Internal Medicine Gastroenterology
DX: R10.10 Upper abdominal pain, unspecified (principal)
CPT/HCPCS: 74177; Q9967

== ENCOUNTER → 2024-12-04 07:01 | Outpatient (BNV) | payer MEDICAID, SELFPAY | PROVIDERS: Visit Provider Radiology Diagnostic Radiology | DX: R10.11 Right upper quadrant pain (principal); R07.9 Chest pain, unspecified; M54.6 Pain in thoracic spine; R63.4 Abnormal weight loss; R63.0 Anorexia | CPT/HCPCS: 74177 ==

== ENCOUNTER 2025-01-21 08:32 | Outpatient (AMB) | payer MEDICAID, SELFPAY ==
--- NOTE | 2025-01-21 08:34 | A.OFFVIS_ITS ---
Vital Signs 01/21/25 08:35 Height 5 ft 9 in Weight 192 lb 10.944 oz BMI 28.5 BP 100/70 Blood Pressure Location Lt brachial Position Sitting Pulse 73 Pulse Source Pulse Oximeter Intake Visit Reasons: 2 mth f/up echo/ holter HS Inventory Representative Required: No Allergies No Known Allergies Allergy (Verified 01/21/25 08:38) Medication List - Last Reconciled 01/21/25 by Carloyn Barboza NP-Cornelia barium sulfate 2%(w/v) (Readi-Cat 2) 900 mL PO ONCE esomeprazole magnesium 40 mg PO DAILY sucralfate 10 mL PO BID HPI HPI 2 mth f/up echo/ holter HS: Details: Jerry is a 44 yo male with PMH of GERD who is being evaluated for heart palpitations. He recently undewent a Cardiace event monitor and echocardiogram and now presents for follow up. Today he reports that since his last visit in October he had 1 episode where he felt heart palpitations. He states it started as dizziness and then he felt his heart rate fiber picker. The dizziness persisted for many hours and he did go to the [facility] emergency room where he was treated for vertigo. His EKG in the emergency room showed normal sinus rhythm. He says at times his heart will go fast and other times it feels like it is skipping. No presyncope, syncope, falls. No chest discomfort at rest or with activity. No shortness of breath, PND, orthopnea. He reports good activity tolerance. Son is present. [facility] Medical History GERD (gastroesophageal reflux disease) Palpitations Surgical History History of esophagogastroduodenoscopy (EGD) Family History Mother Lung cancer Social History Unable to assess alcohol history related to: Unable to respond Patient Tobacco Use Status: Former Tobacco user Tobacco use type: Cigarette Review of Systems Const All systems reviewed & are unremarkable except as noted in HPI and below ENT Reports dizziness Card Denies chest pain, Denies chest pain at rest, Denies chest pain with activity, Reports rapid heart rate, Denies pedal edema, Denies edema, Denies leg edema, Denies lightheadedness, Denies palpitations, Denies dyspnea, Denies dyspnea on exertion and Denies orthopnea Resp Denies cough, Denies dyspnea and Denies dyspnea on exertion GI Denies hematochezia and Denies change in stool character Musc Denies abnormal gait, Reports limited range of motion, Reports muscle cramps, Denies muscle weakness, Denies numbness, Denies radiating pain into limb, Denies stiffness and Denies tingling Neuro Denies abnormal gait, Reports dizziness, Denies numbness and Denies tingling Endo Denies palpitations Physical Exam Vital Signs: Last Vital Signs Pulse 73 01/21/25 08:35 BP 100/70 01/21/25 08:35 BMI result Body Mass Index 28.5 Const General: cooperative, healthy appearing, comfortable and no acute distress Orientation/consciousness: patient oriented x3 Neck Neck: Yes normal visual inspection Resp Effort & Inspection: normal respiratory effort Auscultation: clear to auscultation bilaterally, no crackles, no rales, no rhonchi and no wheezes Cardio Rate: regular rate Rhythm: regular rhythm Heart sounds: S1 normal heart sound present, S2 normal heart sound present, no gallops, no murmurs and no rubs Neuro General: patient oriented x3 Extrem General: Yes normal to inspection Psych Appearance: grossly normal Mental Status: mental status grossly normal Speech and movement: Normal speech and movement present Assessment & Plan Assessment & Plan (1) Palpitations: Code(s): R00.2 - Palpitations Category: Medical Plan: Reports of rapid heart palpitations occurring occasionally and heart skipping guo ppening more commonly. His EKG done 11/06/2024 showed sinus rhythm with normal MA, QRS and QTC intervals. Cardiac event monitor 11/29/2024 and worn for 15 days showing sinus rhythm with average heart rate 70 beats per minute, rare ventricular ectopy, one 4 beat NSVT, symptom of dizziness correlated with sinus tachycardia. Echocardiogram done 11/29/2024 showed normal study. Test results reviewed with him in detail. ER evaluation for dizziness and heart palpitations since last visit with finding of vertigo. Reviewed that no significant arrhythmias have been identified as of yet. Recommended he get a Kardiamobile device and record heart rhythm with his symptoms. Cardiology follow-up 3-4 months to go over his findings, sooner if needed. Emergency care if ever needed for sustained rapid heart palpitations. (2) Dizziness: Code(s): R42 - Dizziness and giddiness Category: Medical Plan: As above Plan Time spent on chart review, documentation, interview and assessment Coding Level of Care Code Est Pt Level 3 (56362) Complex EM visit Add On G2211 Diagnoses Palpitations R00.2 Dizziness R42 Time Spent (min) 24
[2025-01-21 08:35] VITALS: BP 100/70; PULSE 73; BMI 28.5
--- OUTSIDE RECORDS SUMMARY | 2025-01-21 08:42 | XMS_ITS | Clinical Summary ---
Author Organization [facility] Address [address] [place] [address] Care Team Providers Care Radiologic Technologist Mammogram Name Role Phone Sudha Stewart-Cornelia Primary Care Provider [phone] Source Comments PLEASE NOTE, if this patient [...] Description 10/31/2024 9:00 AM EDT Office Visit [address] [id number] Sudha Stewart FNP-C from Last 3 Months Immunizations Immunization Administration Dates Next Due COVID-19,SARS-COV-2 VACCINE, UNSPECIFIED (US Adm in) 02/01/2024 HEP B, PED/ADOL (TRLFSEL-O-RRYA/RECOMBIVAX-PEDS) 02/01/2024,12/19/2023 INFLUENZA, SEASONAL, INJECTABLE 11/11/2023 IPV (IPOL) [...] Last Done Comments Dental Perio Charting 1980 Imm-Influenza (#1) 2025 04/16/2024, 11/11/2023 Dental BW 07/06/2025 07/04/2024 Dental Examination 07/06/2025 [...] 02/29/2024, 024 Hepatitis C Screening Completed 02/29/2024 [id number] Completed 04/16/2024, 01/17, 11/11/2023 Alcohol and Drug Screen Completed 10/31/2024 [...] EDT Routine general medical examination at a [facility] care facility BLOOD COUNT COMPLETE AUTO&AUTO DIFRNTL WBC Routine 10/31/2024 9:29 AM EDT Routine general medical examination at a [facility] care facility INTRAORAL - COMP SERIES [...] COUNT 5.7 3.8 - 10.8 Thousand/ uL [employer] [facility] RED BLOOD CELL COUNT 5.01 4.20 - 5.80 Million/u L [facility] [employer] [facility] HEMOGLOBIN 14.2 13.2 - 17.1 g/dL [employer] [facility] HEMATOCRIT 44.0 38.5 - 50.0 % [employer] [facility] MCV 87.8 80.0 - 100.0 fL [employer] [facility] MCH 28.3 27.0 - 33.0 pg [employer] [facility] MCHC 32.3 32.0 - 36.0 g/dL [employer] [facility] Comment: For adults, a slight decrease in the calculated MCHC value (in the range of 30 to 32 g/dL) is most likely not clinically significant; however, it should be interpreted with caution in correlation with other red cell parameters and the patient's clinical condition. RDW 12.5 11.0 - 15.0 % [facility] PLATELET COUNT 215 140 - 400 Thousand/ uL [facility] MPV 10.2 7.5 - 12.5 fL [facility] ABSOLUTE NEUTROPHILS 3,266 1,500 - 7,800 cells/uL [facility] ABSOLUTE LYMPHOCYTES 1,887 850 - 3,900 cells/uL [facility] ABSOLUTE MONOCYTES 450 200 - 950 cells/uL [facility] ABSOLUTE EOSINOPHILS 68 15 - 500 cells/uL [facility] ABSOLUTE BASOPHILS 29 0 - 200 cells/uL [facility] NEUTROPHILS PCT 57.3 % [facility] [employer] LYMPHOCYTES 33.1 % [facility] [employer]) MONOCYTES 7.9 % [facility] [employer] EOSINOPHILS 1.2 % [facility] [employer] BASOPHILS 0.5 % [facility] [employer] Blood Blood / Unknown 10/31/2024 9 :29 AM EDT 10/31/2024 9:30 AM EDT Sudha Stewart REGIONAL ECONOMIST-C LAB - BLOOD DRAW Edited R esult - Final [employer] [address] [place] [id number], [facility] [address] [place] [phone] * HEMOGLOBIN GLYCOSYLATED A1C (10/31/2024 9:29 AM EDT) HEMOGLOBIN A1C 5.5 <5.7 % [facility] Comment: For the purpose of screening for the presence of diabetes: <5.7% Consistent with the absence of diabetes 5.7-6.4% Consistent with increased risk for diabetes (prediabetes) > or =6.5% Consistent with diabetes This assay result is consistent with a decreased risk of diabetes. Currently, no consensus exists regarding use of hemoglobin A1c for diagnosis of diabetes in children. According to [place] Diabetes Association (ADA) guidelines, hemoglobin A1c <7.0% represents optimal control in non- diabetic patients. Different metrics may apply to specific patient populations. Standards of Medical Care in Diabetes(ADA). Blood Blood / Unknown 10/31/2024 9 :29 AM EDT 10/31/2024 9:30 AM EDT us Sudha Gomesikari REGIONAL ECONOMIST-C LAB - BLOOD DRAW Edited R esult - Final Performing Organization Address City/[facility]/ZIP Co de Phone Number [employer] [address] [address], [employer] [address] [address] * (ABNORMAL) LIPID PANEL (10/31/2024 9:29 AM EDT) CHOLESTEROL, TOTAL 192 <200 mg/dL [facility] [employer] [facility] HDL CHOLESTEROL 44 > OR = 40 mg/dL [employer] [facility] TRIGLYCERIDES 87 <150 mg/dL [employer] [facility] LDL-CHOLESTEROL 129(H) 99 mg/dL (calc) [employer] [facility] Comment: Reference range: <100 Desirable range <100 mg/dL for primary prevention; <70 mg/dL for patients with CHD or diabetic patients with > or = 2 CHD risk factors. LDL-C is now calculated using the Evaristo-April calculation, which is a validated novel method providing better accuracy than the Friedewald equation in the estimation of LDL-C. Evaristo SS et al. DEDE. 2013;310(19): 7319-5276 (http://education.[employer]/faq/PWK983) CHOL/HDLC RATIO 4.4 <5.0 (calc) [employer] [facility] NON-HDL CHOLESTEROL 148(H) <130 mg/dL (calc) [employer] [facility] Comment: For patients with diabetes plus 1 major ASCVD risk factor, treating to a non-HDL-C goal of <100 mg/dL (LDL-C of <70 mg/dL) is considered a therapeutic option. Blood Blood / Unknown 10/31/2024 9 :29 AM EDT 10/31/2024 9:30 AM EDT Sudha Sernari REGIONAL ECONOMIST-C LAB - BLOOD DRAW Final Re sult Performing Organization Address City/[facility]/ZIP Co de Phone Number [employer] [facility] [address] [address], [employer] [facility] [address] [place] [address] * COMPREHENSIVE METABOLIC PANEL (10/31/2024 9:29 AM EDT) GLUCOSE 95 65 - 99 mg/dL [employer] [facility] Comment: Fasting reference interval UREA NITROGEN (BUN) 10 7 - 25 mg/dL [employer] [facility] CREATININE (blood) 0.76 0.60 - 1.29 mg/dL [employer] [facility] EGFR 114 > OR = 60 mL/min/1. 73m2 [employer] [facility] BUN/CREATININE RATIO SEE NOTE: [employer] [facility] Comment: Not Reported: BUN and Creatinine are within reference range. SODIUM 139 135 - 146 mmol/L [employer] [facility] POTASSIUM 4.1 3.5 - 5.3 mmol/L [employer] [facility] CHLORIDE 106 98 - 110 mmol/L [employer] [facility] CARBON DIOXIDE 27 20 - 32 mmol/L [employer] [facility] CALCIUM 8.8 8.6 - 10.3 mg/dL [employer] [facility] PROTEIN, TOTAL 6.6 6.1 - 8.1 g/dL [employer] [facility] [employer] [facility] ALBUMIN 4.1 3.6 - 5.1 g/dL [employer] [facility] GLOBULIN 2.5 1.9 - 3.7 g/dL (calc) [employer] [facility] ALBUMIN/GLOBULI N RATIO 1.6 1.0 - 2.5 (calc) [employer] [facility] BILIRUBIN, TOTAL 1.2 0.2 - 1.2 mg/dL [employer] [facility] ALKALINE PHOSPHATASE 57 36 - 130 U/L [employer] [facility] AST 20 10 - 40 U/L [employer] [facility] ALT 15 9 - 46 U/L [employer] [facility] Blood Blood / Unknown 10/31/2024 9 :29 AM EDT 10/31/2024 9:30 AM EDT us Sudha Stewart REGIONAL ECONOMIST-C LAB - BLOOD DRAW Final Re sult Performing Organization Address [facility]/ZIP Co de Phone Number [employer] [facility] [address] [address], [employer] [facility] [address] [place] [address] * HEPATITIS C AB W/RFLX HCV RNA, QT, RT PCR (02/29/2024 11:31 AM EDT) HEPATITIS C ANTIBODY NON-REACT JOANNA NON-REACT JOANNA [employer] [facility] Comment: HCV antibody was non-reactive. There is no laboratory evidence of HCV infection. In most cases, no further action is required. However, if recent HCV exposure is suspected, a test for HCV RNA (test code 34563) is suggested. For additional information please refer to http://eMarketer.Moneythink/faq/HBD50r1 (This link is being provided for informational/ educational purposes only.) Blood Blood / Unknown 02/29/2024 1 1:31 AM EDT 02/29/2024 11:32 AM EDT Narrative [employer] [facility] - 03/04/2024 10:52 PM EDT FASTING:UNKNOWN COLLECTION KIT GIVEN TO PATIENT. PATIENT ADVISED TO RETURN. Sudha Stewart REGIONAL ECONOMIST-C LAB - BLOOD DRAW Edited R esult - Final [employer] [address] [id number], [employer] [address] [address] * HIV 1/2 AG & AB W/RFLX (4TH GEN) (02/29/2024 11:31 AM EDT) Pathologist [facility] HIV AG/AB, 4TH GEN NON-REAC TIVE NON-REAC TIVE [employer] [facility] Comment: HIV-1 antigen and HIV-1/HIV-2 antibodies [...] purpose. For additional information please refer to http://education.Moneythink/faq/APV089 (This link is being provided for informational/ educational purposes only.) The performance of this assay has not been clinically validated in patients less than 2 years old. Blood Blood / Unknown 02/29/2024 1 1:31 AM EDT 02/29/2024 11:32 AM EDT Narrative [employer] [facility] - 03/04/2024 10:52 PM EDT FASTING:UNKNOWN COLLECTION KIT GIVEN TO PATIENT. PATIENT ADVISED TO RETURN. [employer] REGIONAL ECONOMIST-C LAB - BLOOD DRAW Final Re sult Performing Organization Address [facility] Co de Phone Number [employer] [address] [address], [employer] [address] [phone] * HEPATITIS B SURFACE AG, EIA WITH REFLEX CONFIRM (02/29/2024 11:31 AM EDT) HEPATITIS B SURFACE ANTIGEN NON-REACT JOANNA NON-REACT JOANNA [employer] [facility] COMMENT [facility] [employer] [facility] Blood Blood / Unknown 02/29/2024 1 1:31 AM EDT 02/29/2024 11:32 AM EDT Narrative [employer] [facility] - 03/04/2024 10:52 PM EDT FASTING:UNKNOWN COLLECTION KIT GIVEN TO PATIENT. PATIENT ADVISED TO RETURN. For additional information, please refer to http://education.PaeDae.[employer]/faq/TCX845 (This link is being provided for informational/ educational purposes only.) [employer] REGIONAL ECONOMIST-C LAB - BLOOD DRAW Edited R esult - Final Performing Organization Address [facility] Co de Phone Number [employer] [address] [address], [employer] [address] [phone] from Last 3 Months or Most Recently Relevant to Health Maintenance Insurance [address] [employer]CO [place] MEDICAID DENTAL Care Teams Radiologic Technologist Mammogram Relationship Specialty Start Date End Date Sudha Stewart FNP-C [address] [place] [address] PCP - General Internal Medicine 07/04/24
--- OUTSIDE RECORDS SUMMARY | 2025-01-21 08:42 | XMS_ITS | Clinical Summary ---
Author Organization [facility] Address [address] [facility] [address] [place] [address] Care Team Providers Care Manufacturing Analyst Name Role Phone Unavailable Primary Care Provider Unavailabl e Encounters Date Type Department Care Team Description 01/07/2025 Population Health Risk Score [facility] (C3) Department [address] [facility] [address] [place] [id number] Provider, Population Health Generic from Last 3 Months Social History Tobacco Use Types Packs/Day Years Used Date Smoking Tobacco: Never Assessed Sex and Gender Information Value Date Recorded Sex Assigned at Not on file Legal Sex Male 9:24 PM EDT Gender Identity Not on file Sexual Orientation Not on file Plan of Treatment Health Maintenance Due Date Last Done Comments Depression Screening 1980 HIV Screening 1980 Lipid Panel 1980 SDOH Screening 1980 Disability Screening 1980 Alcohol/Substance Use Screening 1992 Tobacco Screening 1992 Family Planning (PISQ) 10/14/1995 HPV Vaccines (1 - Male 3-dos e series) 10/14/1995 Hepatitis C Screening 1998 DTaP/Tdap/Td Vaccines (1 - Tdap) 10/14/1999 Hepatitis B Vaccines (1 of 3 - 19+ 3-dose series) 10/14/1999 COVID-19 Vaccine (1 - 2023-2 5 season) 2024 Influenza Vaccine (#1) 2025 Zoster Vaccines (1 of 2) 2030 RSV Patients and Pa tients Aged 60 years or older (1 - 1-dose 75+ series) 10/14/2055 HIB Vaccines Aged Out No longer eligi ble based on patient's age to complete this topic Hepatitis A Vaccines Aged Out No long er eligible based on patient's age to complete this topic IPV Vaccines Aged Out No longer eligi ble based on patient's age to complete this topic Meningococcal B Vaccine Aged Out No l onger eligible based on patient's age to complete this topic Meningococcal Vaccine Aged Out No annette jose eligible based on patient's age to complete this topic Pneumococcal Vaccine: Pediat rics (0 to 5 Years) and At-Risk Patients (6 to 49) Years Aged Out No longer eligible b ased on patient's age to complete this topic RSV under 20 months Aged Out No longe r eligible based on patient's age to complete this topic Rotavirus Vaccines Aged Out No longer eligible based on patient's age to complete this topic
--- OUTSIDE RECORDS SUMMARY | 2025-01-21 08:42 | XMS_ITS | Clinical Summary ---
Author Organization [facility] Address [address] [place] [address] Phone Care Team Providers Care Edge Molder Name Role Phone Sudha Stewart WILLIAN Primary Care Provider Encounters Date Type Department Care Team Description 12/30/2024 7:42 AM EDT - 12/30/2024 11:59 PM EDT Hospital Encounter [facility] Xray [address] [place] [address] Other dysphagia Discharge Disposition: Home or Self Care from Last 3 Months Social History Tobacco Use Types Packs/Day Years Used Date Smoking Tobacco: Never Assessed Sex and Gender Information Value Date Recorded Sex Assigned at Male 11/15/2024 8:10 AM EDT Legal Sex Male 12:36 PM EDT Gender Identity Male 11/15/2024 8:10 AM EDT Sexual Orientation Straight 11/15/2024 8: 10 AM EDT Plan of Treatment Health Maintenance Due Date Last Done Comments Hepatitis B Vaccines (1 of 3 - 19+ 3-dose series) 10/14/1999 02/01/2024, 12/19/2023 IPV Vaccines (2 of 3 - Adult catch-up series) 12/09/2023 11/11/2023 Depression Screening 06/19/2024 HIV Screening 11/13/2024 Social Influencers of Health Screening 11/13/2024 Influenza Vaccine (#1) 2025 , 11/11/2023 Cholesterol Screening (Lipid Panel) 10/31/2029 10/31/2024, 10/31/2024 DTaP,Tdap,and Td Vaccines (3 - Td or Tdap) 01/31/2034 02/01/2024, 12/19/2023 MMR Vaccines Aged Out 12/19/2023, 11/11/2023 No longer eligible based on patient's age to complete this topic Varicella Vaccines Aged Out 12/19/2023, 11/11/2023 No longer eligible based on patient's age to complete this topic Hepatitis C Screening Completed 02/29/2024 COVID-19 Vaccine Completed 04/16/2024, 02/01/2024, 11/11/2023 HIB Vaccines Aged Out No longer eligi ble based on patient's age to complete this topic HPV Vaccines Aged Out No longer eligi ble based on patient's age to complete this topic Hepatitis A Vaccines Aged Out No long er eligible based on patient's age to complete this topic Meningococcal ACWY Vaccine Aged Out N o longer eligible based on patient's age to complete this topic Meningococcal B Vaccine Aged Out No l onger eligible based on patient's age to complete this topic Pneumococcal Vaccine: Pediatrics (0 to 5 Years) and At-Risk Patients (6 to 49 Years) Aged Out No longer eligible b ased on patient's age to complete this topic RSV Immunization Patients Under 20 months Aged Out No longer eligible b ased on patient's age to complete this topic Procedures Procedure Name Priority Date/Time Associated Diagnosis Comments XR ESOPHAGRAM Routine 12/30/2024 8:08 AM EDT Other dysphagia from Last 3 Months Results * XR Esophagram (12/30/2024 8:08 AM EDT) Anatomical Region Laterality Modality Head and Neck Radiographic Eduarda ging 12/30/2024 11:2 5 AM EDT Impressions 12/30/2024 3:34 PM EDT Normal double contrast esophagram exam. -------- FINAL REPORT -------- Dictated By: Christina Christianson Dictated Date: 12/30/2024 11:25 ET Assigned Physician: Taras Willett Reviewed and Electronically Signed By: Taras Willett Signed Date: 12/30/2024 15:34 ET Workstation ID: [id number] Transcribed By: Self Edit Transcribed Date: 12/30/2024 11:28 ET Resident/PA/SOLID WASTE DISPOSAL MANAGER: Christina Christianson Narrative 12/30/2024 3:34 PM EDT FINDINGS: Double contrast esophagram performed. COMPARISON: None HISTORY: Patient is a 44-year-old male with history of dysphagia, GERD. Materials Recycler radiographs: 1 view chest radiograph demonstrates cardiac and mediastinal contours within normal limits. Lungs are clear bilaterally. Costophrenic angles are sharp. Osseous structures are overall unremarkable. 1 view lateral soft tissue neck demonstrates no prevertebral soft tissue masses. Airway is widely patent. There is loss of cervical lordosis. Effervescent crystals were administered orally. Thick and thin barium were administered orally under fluoroscopic control. Pharyngoesophagram: Rapid sequence imaging of the hypopharynx during swallowing demonstrates prompt initiation of swallowing. There is normal soft palate elevation and normal epiglottic motion. There is no laryngeal penetration or gwendolyn aspiration. There is no residual in the vallecula nor in the piriform sinuses. Thoracic esophagus: Normal distensibility, motility and mucosal pattern without evidence of ulceration, stricture or mass formation. Hiatal hernia: None Reflux: Unable to elicit 13mm Barium pill: Swallowed without difficulty. Prompt passage of pill from the esophagus into the stomach. DAP: 4.44 Gycm^2 Procedure Note Taras Willett MD - 12/30/2024 FINDINGS: Double contrast esophagram performed. COMPARISON: None HISTORY: Patient is a 44-year-old male with history of dysphagia, GERD. Materials Recycler radiographs: 1 view chest radiograph demonstrates cardiac andmediastinal contours within normal limits. Lungs are clear bilaterally.Costophrenic angles are sharp. Osseous structures are overallunremarkable. 1 view lateral soft tissue neck demonstrates no prevertebralsoft tissue masses. Airway is widely patent. There is loss of cervicallordosis. Effervescent crystals were administered orally. Thick and thin barium wereadministered orally under fluoroscopic control. Pharyngoesophagram: Rapid sequence imaging of the hypopharynx duringswallowing demonstrates prompt initiation of swallowing. There is normalsoft palate elevation and normal epiglottic motion. There is no laryngealpenetration or gwendolyn aspiration. There is no residual in the vallecula norin the piriform sinuses. Thoracic esophagus: Normal distensibility, motility and mucosal patternwithout evidence of ulceration, stricture or mass formation. Hiatal hernia: None Reflux: Unable to elicit 13mm Barium pill: Swallowed without difficulty. Prompt passage of pillfrom the esophagus into the stomach. DAP: 4.44 Gycm^2 IMPRESSION: Normal double contrast esophagram exam. -------- FINAL REPORT -------- Dictated By: Christina Christianson Dictated Date: 12/30/2024 11:25 ET Assigned Physician: Taras Willett Reviewed and Electronically Signed By: Taras Willett Signed Date: 12/30/2024 15:34 ET Workstation ID: [id number] Transcribed By: Self Edit Transcribed Date: 12/30/2024 11:28 ET Resident/PA/SOLID WASTE DISPOSAL MANAGER: Christina Christianson Sudha DORSEY IMG FLUOROSCOPY PROCEDURES Final Result from Last 3 Months Insurance MEDICAID - [place] Care Teams Edge Molder Relationship Specialty Start Date End Date Sudha Stewart FNP [address] [place] [address] PCP - General Family Medicine 11/15/24
== END 2025-01-21 09:01 | disposition home or self-care (01) ==
LOC: HO.HCS 08:32
PROVIDERS: Visit Provider Nurse Practitioner Family
DX: R00.2 Palpitations (principal); R42 Dizziness and giddiness
CPT/HCPCS: 99213

== ENCOUNTER → 2025-01-21 08:32 | Outpatient (BNVA) | payer MEDICAID, SELFPAY | PROVIDERS: Visit Provider Nurse Practitioner Family | DX: Z71.2 Person consulting for explanation of examination or test findings (principal); R00.2 Palpitations; R42 Dizziness and giddiness | CPT/HCPCS: 99212 ==

== ENCOUNTER 2025-02-10 07:57 | Outpatient (AMB) | payer MEDICAID, SELFPAY ==
--- OUTSIDE RECORDS SUMMARY | 2025-02-10 07:59 | XMS_ITS | Clinical Summary ---
Author Organization [facility] Address [address] [place] [address] Care Team Providers Care Boat Person Name Role Phone TerrySudha baer CLAIM BENEFIT SPECIALIST-Cornelia Primary Care Provider [phone] Source Comments PLEASE NOTE, if this patient [...] Diagnosed Date Resolved Date Anxiety 02/29/2024 02/29/2024 Immunizations Immunization Administration Dates Next Due COVID-19,SARS-COV-2 VACCINE, UNSPECIFIED (US Adm in) 02/01/2024 HEP B, PED/ADOL (JQZIDOG-C-CYOD/RECOMBIVAX-PEDS) 02/01/2024,12/19/2023 INFLUENZA, SEASONAL, INJECTABLE 11/11/2023 IPV (IPOL) [...] 02/29/2024, 024 Hepatitis C Screening Completed 02/29/2024 [id number] Completed 04/16/2024, 01/17, 11/11/2023 Alcohol and Drug Screen Completed 10/31/2024 Depression Annual Screen Completed 10/31/2024 Procedures Procedure Name Priority Date/Time Associated Diagnosis Comments REFERRAL TO OPHTHALMOLOGY Routine 02/04/2025 3:00 AM EDT Poor vision HEMOGLOBIN GLYCOSYLATED A1C Routine 10/31/2024 9:29 AM [...] Recently Relevant to Health Maintenance Results * REFERRAL TO OPTHALMOLOGY (02/04/2025 3:00 AM EDT) 02/04/2025 3:00 AM EDT Sudha Stewart CLAIM BENEFIT SPECIALIST-C REFERRAL Final Res ult * HEMOGLOBIN GLYCOSYLATED A1C (10/31/2024 9:29 AM EDT) HEMOGLOBIN A1C 5.5 <5.7 % [facility] Comment: For the purpose of screening for the presence of diabetes: <5.7% Consistent with the absence of diabetes 5.7-6.4% Consistent with increased risk for diabetes (prediabetes) > or =6.5% Consistent with diabetes This assay result is consistent with a decreased risk of diabetes. Currently, no consensus exists regarding use of hemoglobin A1c for diagnosis of diabetes in children. According to [place] Diabetes Association (ADA) guidelines, hemoglobin A1c <7.0% represents optimal control in non- diabetic patients. Different metrics may apply to specific patient populations. Standards of Medical Care in Diabetes(ADA). Blood Blood / Unknown 10/31/2024 9 :29 AM EDT 10/31/2024 9:30 AM EDT Sudha Stewart CLAIM BENEFIT SPECIALIST-C LAB - BLOOD DRAW Edited R esult - Final Performing Organization Address [facility]/ZIP Co de Phone Number [employer] [address] [address], [employer] [address] [address] * (ABNORMAL) LIPID PANEL (10/31/2024 9:29 AM EDT) CHOLESTEROL, TOTAL 192 <200 mg/dL [employer] [facility] HDL CHOLESTEROL 44 > OR = 40 mg/dL [employer] [facility] TRIGLYCERIDES 87 <150 mg/dL [employer] [facility] LDL-CHOLESTEROL 129(H) 99 mg/dL (calc) [employer] [facility] Comment: Reference range: <100 Desirable range <100 mg/dL for primary prevention; <70 mg/dL for patients with CHD or diabetic patients with > or = 2 CHD risk factors. LDL-C is now calculated using the Ashley calculation, which is a validated novel method providing better accuracy than the Friedewald equation in the estimation of LDL-C. Evaristo SALAS et al. DEDE. 2013;310(19): 9061-4524 (http://education.Amazing [employer] Letters/faq/YYA533) CHOL/HDLC RATIO 4.4 <5.0 (calc) [facility] NON-HDL CHOLESTEROL 148(H) <130 mg/dL (calc) [facility] Comment: For patients with diabetes plus 1 major ASCVD risk factor, treating to a non-HDL-C goal of <100 mg/dL (LDL-C of <70 mg/dL) is considered a therapeutic option. Blood Blood / Unknown 10/31/2024 9 :29 AM EDT 10/31/2024 9:30 AM EDT Sudha Stewart CLAIM BENEFIT SPECIALIST-C LAB - BLOOD DRAW Final Re sult Performing Organization Address [facility]/ZIP Co de Phone Number [employer] [address] [address], [employer] [address] [address] * HEPATITIS C AB W/RFLX HCV RNA, QT, RT PCR (02/29/2024 11:31 AM EDT) HEPATITIS C ANTIBODY NON-REACT JOANNA NON-REACT JOANNA [employer] Comment: HCV antibody was non-reactive. There is no laboratory evidence of HCV infection. In most cases, no further action is required. However, if recent HCV exposure is suspected, a test for HCV RNA (test code 48203) is suggested. For additional information please refer to http://[employer]/faq/ZKS57i4 (This link is being provided for informational/ educational purposes only.) Blood Blood / Unknown 02/29/2024 1 1:31 AM EDT 02/29/2024 11:32 AM EDT Narrative [employer] - 03/04/2024 10:52 PM EDT FASTING:UNKNOWN COLLECTION KIT GIVEN TO PATIENT. PATIENT ADVISED TO RETURN. Sudha Stewart CLAIM BENEFIT SPECIALIST-C LAB - BLOOD DRAW Edited R esult - Final [employer] [address] [place] [id number], [employer] [address] [place] [phone] * HIV 1/2 AG & AB W/RFLX (4TH GEN) (02/29/2024 11:31 AM EDT) Pathologist [facility] HIV AG/AB, 4TH GEN NON-REAC TIVE NON-REAC TIVE [employer] Comment: HIV-1 antigen and HIV-1/HIV-2 antibodies were [...] purpose. For additional information please refer to http://[employer]/faq/KXM411 (This link is being provided for informational/ educational purposes only.) The performance of this assay has not been clinically validated in patients less than 2 years old. Blood Blood / Unknown 02/29/2024 1 1:31 AM EDT 02/29/2024 11:32 AM EDT Narrative [employer] - 03/04/2024 10:52 PM EDT FASTING:UNKNOWN COLLECTION KIT GIVEN TO PATIENT. PATIENT ADVISED TO RETURN. Year Up CLAIM BENEFIT SPECIALIST-C LAB - BLOOD DRAW Final Re sult Performing Organization Address [facility] de Phone Number [employer] [address] [place] [id number], [employer] [address] [address] * HEPATITIS B SURFACE AG, EIA WITH REFLEX CONFIRM (02/29/2024 11:31 AM EDT) HEPATITIS B SURFACE ANTIGEN NON-REACT JOANNA NON-REACT JOANNA [employer] [facility] COMMENT [facility] [employer] [facility] Blood Blood / Unknown 02/29/2024 1 1:31 AM EDT 02/29/2024 11:32 AM EDT Narrative [employer] - 03/04/2024 10:52 PM EDT FASTING:UNKNOWN COLLECTION KIT GIVEN TO PATIENT. PATIENT ADVISED TO RETURN. For additional information, please refer to http://education.[employer]Society/faq/FPJ417 (This link is being provided for informational/ educational purposes only.) [employer] CLAIM BENEFIT SPECIALIST-C LAB - BLOOD DRAW Edited R esult - Final Performing Organization Address [facility] de Phone Number [employer] [address] [address], [employer] [address] [address] from Last 3 Months or Most Recently Relevant to Health Maintenance Insurance [facility] [place] MEDICAID [place]ENT[place] Care Teams Boat Person Relationship Specialty Start Date End Date Sudha Stewart FNP-C [address] [place] [address] PCP - General Internal Medicine 07/04/24
--- OUTSIDE RECORDS SUMMARY | 2025-02-10 08:00 | XMS_ITS | Clinical Summary ---
Author Organization [facility] Address [address] [place] [address] Phone Care Team Providers Care Ground Operations Crew Member Name Role Phone Sudha Stewart WILLIAN Primary Care Provider Encounters Date Type Department Care Team Description 12/30/2024 7:42 AM EDT - 12/30/2024 11:59 PM EDT Hospital Encounter [facility] Xray [address] [place] [address] Other dysphagia Discharge Disposition: Home [...] Signed Date: 12/30/2024 15:34 ET Workstation ID: [id number] Transcribed By: Self Edit Transcribed Date: 12/30/2024 11:28 ET Resident/PA/CHILD DAY CARE CENTER WORKER: Christina Christianson Narrative 12/30/2024 3:34 PM EDT FINDINGS: Double contrast esophagram performed. COMPARISON: None HISTORY: Patient is a 44-year-old male with history of dysphagia, GERD. Tailor Fitter radiographs: 1 view chest radiograph demonstrates cardiac [...] 44-year-old male with history of dysphagia, GERD. Tailor Fitter radiographs: 1 view chest radiograph demonstrates cardiac [...] Signed Date: 12/30/2024 15:34 ET Workstation ID: [id number] Transcribed By: Self Edit Transcribed Date: 12/30/2024 11:28 ET Resident/PA/CHILD DAY CARE CENTER WORKER: Christina Christianson Sudha DORSEY IMG FLUOROSCOPY PROCEDURES Final Result from Last 3 Months Insurance MEDICAID - [place] Care Teams Ground Operations Crew Member Relationship Specialty Start Date End Date Sudha Stewart FNP [address] [place] [address] PCP - General Family Medicine 11/15/24
--- NOTE | 2025-03-11 11:09 | MHC.OFFVIS ---
Intake Visit Reasons: CAPSULE ENDOSCOPY - RAFI Allergies No Known Allergies Allergy (Verified 02/22/25 13:13) PFSH Medical History GERD (gastroesophageal reflux disease) Palpitations Surgical History History of esophagogastroduodenoscopy (EGD) Family History Mother Lung cancer Social History Patient Tobacco Use Status: Former Tobacco user Tobacco use type: Cigarette Office Procedures AMB Capsule Endoscopy Procedure Notes: Capsule Endoscopy: Date of Service:02/10/25 Indication: Suspected Crohns of Small Bowel Findings: GEJ was normal, Stomach with patchy erythema. duodenum entered at 3 hr 21 min with mild duodenitis noted. Rest of small with good visualization and no erosions or ulcers seen. cecum reached at 5 hr 14 Conclusion: gastritis, and duodenitis, possible gastroparesis as capsule spent long time in stomach. Capsule Endoscopy CPT Code: 27674 - Capsule Endoscopy Assessment & Plan Assessment & Plan (1) Enteritis: Code(s): K52.9 - Noninfective gastroenteritis and colitis, unspecified Category: Medical Plan: as above Coding Level of Care Code Procedure Only Diagnoses Enteritis K52.9 CPT Codes AMB Capsule Endoscopy - Capsule Endoscopy CPT Code: 55069 - Capsule Endoscopy ([id number])
== END 2025-02-10 08:23 | disposition home or self-care (01) ==
LOC: HO.HGI 07:58
PROVIDERS: Visit Provider Internal Medicine Gastroenterology
DX: K52.9 Noninfective gastroenteritis and colitis, unspecified (principal)
CPT/HCPCS: 91110

== ENCOUNTER → 2025-02-10 07:57 | Outpatient (BNVA) | payer MEDICAID, SELFPAY | PROVIDERS: Visit Provider Internal Medicine Gastroenterology | DX: K52.9 Noninfective gastroenteritis and colitis, unspecified (principal); K29.70 Gastritis, unspecified, without bleeding; K29.80 Duodenitis without bleeding | CPT/HCPCS: 91110 ==

== ENCOUNTER 2025-02-22 13:08 | Emergency (ER) | payer MEDICAID, SELFPAY ==
[2025-02-22 13:10] VITALS: BP 129/60; PULSE 71; RESP 16; TEMP 36.4; O2SAT 98; BMI 27.5
--- NOTE | 2025-02-22 13:11 | ED.GENADULT ---
HPI - General Adult General Chief complaint: Allergic Reaction Stated complaint: allergic reaction Time Seen by Provider: 02/22/25 13:28 Source: patient Mode of arrival: ambulatory Limitations: no limitations History of Present Illness ED Provider: Kailey Woods PA-C HPI narrative: Patient is a 44 year old assigned male at with a history of GERD presenting to the emergency department today with a rash on his arms and legs. Patient states that he woke up with itchy small red bumps on his arms and legs. Patient reports 4-5 episodes of similar rashes in the past 6 months that resolved spontaneously with no known trigger. Patient has not tried anything at home for the rash. Patient denies any chest or throat tightness, difficulty breathing, dizziness, lightheadedness, abdominal pain, nausea, vomiting, fever, chills, blurry vision, double vision, loss of vision or any other complaints at this time. Related Data Previous Rx's ?Medication ?Instructions ?Recorded sucralfate 100 mg/mL oral 10 ml PO BID #1,000 mL 05/28/24 suspension barium sulfate 2 % (w/v) oral 900 ml PO ONCE #900 mL 12/02/24 suspension (Readi-Cat 2) esomeprazole magnesium 40 mg 40 mg PO DAILY #90 caps 02/18/25 capsule,delayed release loratadine 10 mg tablet 10 mg PO DAILY #30 tabs 02/22/25 prednisone 20 mg tablet 20 mg PO DAILY 7 days #7 tabs 02/22/25 Allergies Allergy/AdvReac Type Severity Reaction Status Date / Time No Known Allergies Allergy Verified 02/22/25 13:13 Review of Systems Constitutional: Constitutional: Reports as per HPI Eyes: Eyes: Reports as per HPI ENT: Reports as per HPI Cardiovascular: Cardiovascular: Reports as per HPI Respiratory: Respiratory: Reports as per HPI Gastrointestinal: Gastrointestinal: Reports as per HPI Musculoskeletal: Musculoskeletal: Reports as per HPI Integumentary/Breasts: Skin/Breast: Reports as per HPI Neurologic: Reports as per HPI Psychiatric: Psychiatric: Reports as per HPI Endocrine: Endocrine: Reports as per HPI Hematologic/Lymphatic: Hematologic/Lymphatic: Reports as per HPI Allergic/Immunologic: Allergic/Immunologic: Reports as per HPI FOR[facility]LY [facility] Past Medical History Attestation statement: The following information was validated with the patient. Source: old records reviewed and nursing notes reviewed Medical History GERD (gastroesophageal reflux disease) Palpitations Surgical History History of esophagogastroduodenoscopy (EGD) Family History Family History Mother Lung cancer Social History Social History Unable to assess alcohol history related to: Unable to respond Patient Tobacco Use Status: Former Tobacco user Tobacco use type: Cigarette Advance Directives: No Advance Directives Information Provided: Yes Physical Exam ED Vital Signs: Vital Signs - 24 hr 02/22/25 13:10 02/22/25 14:03 Temperature 97.6 F 97.6 F Pulse Rate 71 71 Respiratory Rate 16 16 Blood Pressure 129/60 129/60 Pulse Oximetry 98 98 Oxygen Delivery Method Room Air Room Air BMI result Body Mass Index 27.5 Const General: cooperative, no acute distress, alert and awake Nutritional Appearance: well nourished Orientation/consciousness: patient oriented x3 HENMT Head: Yes normal to inspection and Yes atraumatic Ears: hearing grossly normal bilaterally and external ears normal General nose exam: Normal external nose present, no nasal discharge noted and no epistaxis Face and sinus: Yes normal facial exam, No abrasion and No laceration Mouth: Normal oral and palatal mucosa present, no drooling and no muffled voice Eyes General: appearance normal, both eyes and all related structures Periorbital: periorbital findings normal Eyelids: Yes eyelids normal Conjunctivae: conjunctivae normal Pupils: Equal, round and reactive pupils present EOM: EOMs intact bilaterally Neck Neck: Yes normal visual inspection and Yes full ROM Resp Effort & Inspection: normal respiratory effort and able to speak in complete sentences Neuro General: patient oriented x3, moves all extremities and CN's II-XI intact bilaterally Cranial nerves: Yes Equal, round and reactive pupils present Cognition (Neuro): normal cognition Extrem Other: General: Yes full ROM and Yes capillary refill normal Psych Appearance: grossly normal Mental Status: mental status grossly normal Affect: normal affect Attitude: cooperative Thought process: Normal thought process present Thought content: Normal thought content present Insight: Good insight present (Psych) Course Course Course Narrative: This is a Rapid Medical Examination (RME) performed by Steph Rubio PA-C in triage. Full HPI, ROS, assessment and treatment plan per primary provider in the Main ED. Hx: 44 yo M here w/ concern of allergic reaction. reports itchy rash to neck, extremities and torso which began this morning. no new soaps, lotions, detergents. no plant exposures. no URI symptoms. Medical Decision Making Medical Decision Making MDM Narrative: Patient is a 44 year old assigned male at with a history of GERD presenting to the emergency department today with a rash on his arms and legs. Patient's physical exam was as noted in the physical exam portion of this note and consistent with urticaria. I explained my physical exam findings to the patient. I answered all questions asked by the patient. Patient's clinical presentation is most consistent with idiopathic urticaria. I stressed the importance of the patient taking his medication as directed (either prescribed or as the over the counter packaging recommends). I stressed the importance of the patient following up with his primary care provider, a ict development manager, and an computer help desk representative. I stressed the importance of the patient returning to the emergency department immediately if his symptoms were to worsen or if he were to develop any dizziness, shortness of breath, difficulty breathing, chest pain, blurry vision, loss of vision, nausea, vomiting, abdominal pain, fever, chills, back pain, or any other complaints. Patient verbalized agreement and understanding with this treatment plan and discharge. Differential Diagnosis Differential Diagnoses: The differential diagnosis associated with the presentation includes Urticaria Idiopathic urticaria Admission/Observation Consideration of admission/observation: Escalation of care including admission/observation considered Patient would have been admitted to the hospital had his clinical presentation warranted hospital admission. Discharge Plan Discharge Clinical Impression: Urticaria Patient Disposition: Home, Self-Care Instructions: Urticaria (ED) Additional Instructions: Your rash is consistent with urticaria (hives) secondary to an allergic reaction. Take your medication as prescribed. Follow up with a ict development manager and an computer help desk representative. IF you are prescribed home medications and/or you are taking over the counter medications at home - it is very important you continue to do so as prescribed / directed unless told otherwise. Follow up with a primary care provider. Return to the emergency department immediately if your symptoms worsen or if you develop any numbness, tingling, dizziness, shortness of breath, difficulty breathing, chest pain, blurry vision, loss of vision, nausea, vomiting, abdominal pain, fever, chills, back pain, or any other complaints. If you do not have a primary care provider - call any of the below numbers to establish and follow up with a primary care provider. [facility] [place] Primary Care ([place]) [phone] [place] [address], [address] [facility] [place] Primary Care ([address] [place]) [phone] [address] [facility], [address] [facility], [address] [facility] [place] Primary Care ([address] [place]) [phone] [place] [address], [address] [facility], [address] [facility] [place] Primary Care ([place]) [phone] [place] [address] 2 [facility], [address] [facility] [place] Family Medicine [phone] [place] [address], [address] Please see the information below about our Patient Portal. If you are not yet enrolled in the [facility] Patient Portal, you will receive an enrollment email invitation following your visit to any [facility] [place] [place] care setting. You may also self-enroll in the Patient Portal by visiting our website: [email or web address] The following information is required to access the Patient Portal: - Your [facility] [place] Medical Record Number - Your personal home email address (must match what is in your electronic medical record, Registration staff can assist with this) - Name - Date of Capabilities of the Patient Portal: - Message some providers - View upcoming appointments - Access your health summary, medical history, and visit history - View current conditions and allergies - View procedure and lab results - View your medications, including guidelines, side effects, and precautions - Complete pre-appointment questionnaires requested by your provider - Ready summary reports of your office visits and procedures To access the Patient Portal Mobile Maurizio, follow these directions: - Search [employer] in the Maurizio Store or Google Showpitch Store - Download the Maurizio - Search for [facility] - Enter your login/password Prescriptions: New prednisone 20 mg tablet 20 mg PO DAILY 7 Days Qty: 7 0RF loratadine 10 mg tablet 10 mg PO DAILY Qty: 30 0RF No Action sucralfate 100 mg/mL suspension 10 ml PO BID Qty: 1000 0RF esomeprazole magnesium 40 mg capsule,delayed release(DR/EC) 40 mg PO DAILY Qty: 90 1RF Readi-Cat 2 2 % (w/v) suspension 900 ml PO ONCE Qty: 900 0RF Referrals: [facility] [Provider Group] Referral Note: Call to establish and follow up with a ict development manager. [facility] [Provider Group] Referral Note: Call to establish and follow up with a ict development manager. Ori Molina MD [Physician, Allergy & Immunology] Referral Note: Call to establish and follow up with an computer help desk representative. Lance Rodriguez DO [Physician, Allergy & Immunology] Referral Note: Call to establish and follow up with an computer help desk representative. [facility] [Primary Care Provider, Primary Care] Interventions: ED Discharge Assessment Last Done: 02/22/25 14:03 Discharge Date/Time: 02/22/25 14:06 Print Language: Namibian
--- OUTSIDE RECORDS SUMMARY | 2025-02-22 13:34 | XMS_ITS | Clinical Summary ---
Author Organization [facility] Address [address] [place] [address] Phone Care Team Providers Care Pocket Assembler Name Role Phone Sudha Stewart WILLIAN Primary Care Provider Encounters Date Type Department Care Team Description 12/30/2024 7:42 AM EDT - 12/30/2024 11:59 PM EDT Hospital Encounter [facility] [address] [place] [address] Other dysphagia Discharge Disposition: Home [...] Signed Date: 12/30/2024 15:34 ET Workstation ID: [id number] Transcribed By: Self Edit Transcribed Date: 12/30/2024 11:28 ET Resident/PA/ENGINE COWLING INSTALLER: Christina Christianson Narrative 12/30/2024 3:34 PM EDT FINDINGS: Double contrast esophagram performed. COMPARISON: None HISTORY: Patient is a 44-year-old male with history of dysphagia, GERD. Wood Web Weaving Machine Operator radiographs: 1 view chest radiograph demonstrates cardiac [...] 44-year-old male with history of dysphagia, GERD. Wood Web Weaving Machine Operator radiographs: 1 view chest radiograph demonstrates cardiac [...] Signed Date: 12/30/2024 15:34 ET Workstation ID: [id number] Transcribed By: Self Edit Transcribed Date: 12/30/2024 11:28 ET Resident/PA/ENGINE COWLING INSTALLER: Christina Christianson Sudha DORSEY IMG FLUOROSCOPY PROCEDURES Final Result from Last 3 Months Insurance MEDICAID - [place] Care Teams Pocket Assembler Relationship Specialty Start Date End Date Sudha Stewart FNP [address] [place] [address] PCP - General Family Medicine 11/15/24
--- OUTSIDE RECORDS SUMMARY | 2025-02-22 13:34 | XMS_ITS | Clinical Summary ---
Author Organization [facility] Address [address] [place] [address] Care Team Providers Care Heavy Cleaner Name Role Phone Sudha Stewart MANAGER DENTAL-[place] Primary Care Provider [phone] Source Comments PLEASE NOTE, if this patient [...] ([place] Adm in) 02/01/2024 HEP B, PED/ADOL ([id number]) 02/01/2024,12/19/2023 INFLUENZA, SEASONAL, INJECTABLE 11/11/2023 IPV (IPOL) [...] 02/29/2024, 024 Hepatitis C Screening Completed 02/29/2024 [id number] Completed 04/16/2024, 01/17, 11/11/2023 Alcohol and Drug [...] AM EDT) 02/04/2025 3:00 AM EDT Sudha SCHROEDERP-C REFERRAL Final Res ult * HEMOGLOBIN GLYCOSYLATED A1C (10/31/2024 9:29 AM EDT) Pathologist [facility] HEMOGLOBIN A1C 5.5 <5.7 % Return Path [facility] Comment: For the purpose of screening for the presence of diabetes: <5.7% Consistent with the absence of diabetes 5.7-6.4% Consistent with increased risk for diabetes (prediabetes) > or =6.5% Consistent with diabetes This assay result is consistent with a decreased risk of diabetes. Currently, no consensus exists regarding use of hemoglobin A1c for diagnosis of diabetes in children. According to [place] Diabetes Association (ADA) guidelines, hemoglobin A1c <7.0% represents optimal control in non- diabetic patients. Different metrics may apply to specific patient populations. Standards of Medical Care in Diabetes(ADA). Blood Blood / Unknown 10/31/2024 9 :29 AM EDT 10/31/2024 9:30 AM EDT Sudha Stewart MANAGER DENTAL-C LAB - BLOOD DRAW Edited R esult - Final Performing Organization Address [facility]/ZIP Co de Phone Number [employer] [facility] [address] [address], [employer] [address] [address] * (ABNORMAL) LIPID PANEL (10/31/2024 9:29 AM EDT) [facility] Signature CHOLESTEROL, TOTAL 192 <200 mg/dL [employer] [facility] HDL CHOLESTEROL 44 > OR = 40 mg/dL [employer] TRIGLYCERIDES 87 <150 mg/dL [employer] [facility] LDL-CHOLESTEROL 129(H) 99 mg/dL (calc) [employer] [facility] Comment: Reference range: <100 Desirable range <100 mg/dL for primary prevention; <70 mg/dL for patients with CHD or diabetic patients with > or = 2 CHD risk factors. LDL-C is now calculated using the Ashley calculation, which is a validated novel method providing better accuracy than the Friedewald equation in the estimation of LDL-C. Evaristo SALAS et al. DEDE. 2013;310(19): 6939-2940 (http://education.BioVidria/faq/JAG692) CHOL/HDLC RATIO 4.4 <5.0 (calc) Return Path [facility] NON-HDL CHOLESTEROL 148(H) <130 mg/dL (calc) Return Path [facility] Comment: For patients with diabetes plus 1 major ASCVD risk factor, treating to a non-HDL-C goal of <100 mg/dL (LDL-C of <70 mg/dL) is considered a therapeutic option. Blood Blood / Unknown 10/31/2024 9 :29 AM EDT 10/31/2024 9:30 AM EDT Sudha Stewart MANAGER DENTAL-C LAB - BLOOD DRAW Final Re sult Performing Organization Address [facility]/ZIP Co de Phone Number [employer] [facility] [address] [address], [employer] [address] [address] * HEPATITIS C AB W/RFLX HCV RNA, QT, RT PCR (02/29/2024 11:31 AM EDT) HEPATITIS C ANTIBODY NON-REACT JOANNA NON-REACT JOANNA [employer] Comment: HCV antibody was non-reactive. There is no laboratory evidence of HCV infection. In most cases, no further action is required. However, if recent HCV exposure is suspected, a test for HCV RNA (test code 32299) is suggested. For additional information please refer to http://Skillaton.EdgeWave Inc./faq/TNK48d0 (This link is being provided for informational/ educational purposes only.) Blood Blood / Unknown 02/29/2024 1 1:31 AM EDT 02/29/2024 11:32 AM EDT Narrative [employer] - 03/04/2024 10:52 PM EDT FASTING:UNKNOWN COLLECTION KIT GIVEN TO PATIENT. PATIENT ADVISED TO RETURN. Sudha SCHROEDERP-C LAB - BLOOD DRAW Edited R esult - Final [employer] [address] [place] [address], [employer] [address] [address] * HIV 1/2 AG & AB W/RFLX (4TH GEN) (02/29/2024 11:31 AM EDT) HIV AG/AB, 4TH GEN NON-REAC TIVE NON-REAC TIVE Return Path [facility] Comment: HIV-1 antigen and HIV-1/HIV-2 [...] purpose. For additional information please refer to http://Skillaton.EdgeWave Inc./faq/CUQ698 (This link is being provided for informational/ educational purposes only.) The performance of this assay has not been clinically validated in patients less than 2 years old. Blood Blood / Unknown 02/29/2024 1 1:31 AM EDT 02/29/2024 11:32 AM EDT Narrative [employer] - 03/04/2024 10:52 PM EDT FASTING:UNKNOWN COLLECTION KIT GIVEN TO PATIENT. PATIENT ADVISED TO RETURN. Base[employer] MANAGER DENTAL-C LAB - BLOOD DRAW Final Re sult Performing Organization Address [facility] de Phone Number [employer] [address] [place] [address], [employer] [address] [address] * HEPATITIS B SURFACE AG, EIA WITH REFLEX CONFIRM (02/29/2024 11:31 AM EDT) HEPATITIS B SURFACE ANTIGEN NON-REACT JOANNA NON-REACT JOANNA [employer] [facility] COMMENT [place] DIAG [employer] [facility] Blood Blood / Unknown 02/29/2024 1 1:31 AM EDT 02/29/2024 11:32 AM EDT Narrative [employer] - 03/04/2024 10:52 PM EDT FASTING:UNKNOWN COLLECTION KIT GIVEN TO PATIENT. PATIENT ADVISED TO RETURN. For additional information, please refer to http://education.Asia Media.Spottly/faq/WMP041 (This link is being provided for informational/ educational purposes only.) [employer]-C LAB - BLOOD DRAW Edited R esult - Final Performing Organization Address [facility] de Phone Number [employer] [address] [address], [employer] [address] [address] from Last 3 Months or Most Recently Relevant to Health Maintenance Insurance [address] [employer] MEDICAID DENTAL Care Teams Heavy Cleaner Relationship Specialty Start Date End Date Sudha Stewart FNP-C [address] [place] [address] PCP - General Internal Medicine 07/04/24
--- OUTSIDE RECORDS SUMMARY | 2025-02-22 13:34 | XMS_ITS | Clinical Summary ---
Author Organization [facility] Address [address] [place] [address] Care Team Providers Care Disintegrator Feeder Name Role Phone Unavailable Primary Care Provider Unavailabl e Encounters Date Type Department Care Team Description 01/07/2025 Population Health Risk Score [facility] Care [facility] (C3) Department [address] [facility] [address] [place] [id number] Provider, Population Health Generic from Last 3 Months Social History Tobacco Use Types Packs/Day Years Used Date Smoking Tobacco: Never Assessed Sex and Gender Information Value Date Recorded Sex Assigned at Not on file Legal Sex Male 9:24 PM EDT Gender Identity Not on file Sexual Orientation Not on file Plan of Treatment Health Maintenance Due Date Last Done Comments Depression Screening 1980 Lipid Panel 1980 SDOH Screening 1980 Disability Screening 1980 Alcohol/Substance Use Screening 1992 Tobacco Screening 1992 Family Planning (PISQ) 10/14/1995 HPV Vaccines (1 - Male 3-dos e series) 10/14/1995 Hepatitis C Screening 1998 Hepatitis B Vaccines (1 of 3 - 19+ 3-dose series) 10/14/1999 02/01/2024, 12/19/2023 IPV Vaccines (2 of 3 - Adult catch-up series) 12/09/2023 11/11/2023 Influenza Vaccine (#1) 2025 , 11/11/2023 Zoster Vaccines (1 of 2) 2030 DTaP/Tdap/Td Vaccines (3 - T d or Tdap) 01/31/2034 02/01/2024, 12/19/2023 RSV Patients and Patients Aged 60 years or older (1 - 1-dose 75+ series) 10/14/2055 HIV Screening Completed 02/29/2024, 02/29/2024 COVID-19 Vaccine Completed 04/16/2024, 02/01/2024, 11/11/2023 [...]
[2025-02-22 14:03] VITALS: BP 129/60; PULSE 71; RESP 16; TEMP 36.4; O2SAT 98
== END 2025-02-22 14:06 | disposition home or self-care (01) ==
PROVIDERS: Emergency Provider Emergency Medicine; PCP Dentist General Practice
DX: L50.9 Urticaria, unspecified (principal); R21 Rash and other nonspecific skin eruption; K21.9 Gastro-esophageal reflux disease without esophagitis
CPT/HCPCS: 99282

== ENCOUNTER 2025-03-12 08:33 | Outpatient (REF) | payer MEDICAID, SELFPAY ==
--- NOTE | ~2025-03-12 | FL_ITS ---
EXAMINATION: XR FLUOROSCOPY BARIUM SWALLOW CLINICAL INFORMATION: Globus sensation, GERD type symptoms, episodic epigastric pain radiating to back. COMPARISON: None TECHNIQUE: Fluoroscopic air contrast barium swallow examination was performed utilizing standard techniques with thin and thick barium and effervescent granules. Numerous spot images were obtained. Several fluoroscopic image hold cine sequences were also obtained. FINDINGS: BARIUM SWALLOW: Lateral cine images of the oropharynx and hypopharynx demonstrate normal swallow mechanism with normal epiglottic inversion and soft palate elevation. No laryngeal penetration, glottic or subglottic aspiration identified. No nasopharyngeal reflux present. Hypopharyngeal structures appear normal without evidence of mass or diverticulum. There was no significant cricopharyngeal achalasia. Dual and single contrast images of the esophagus demonstrate normal caliber, contour, and mucosal pattern. No evidence of stricture, mass, or ulcerations identified. Esophageal peristalsis was essentially normal. No evidence of hiatus hernia identified. No significant gastroesophageal reflux was seen during the course of the examination and on reflux views. Dual contrast and single contrast images of the stomach demonstrated normal contour and mucosal pattern without evidence of mass or ulceration. Diffuse thickening of the gastric rugal folds is noted, suggestive of gastritis. Contrast freely passed into the gastric antrum and duodenal bulb without delay. Single and air-contrast images of the duodenal bulb demonstrate no abnormality. The duodenal sweep has a normal appearance, course, and mucosal fold appearance. FLUOROSCOPY TIME: 2 minutes, 37 seconds Number of Spot Images:10 Number of cines obtained: 6 DOSE AREA PRODUCT: 3372 uGy-m2 (microgray-meter squared) FL/FL barium swallow with air IMPRESSION: 1. Diffuse thickening of the gastric rugal folds, consistent with gastritis. 2. Normal appearing esophagus, and GE junction. 3. No evidence of hiatus hernia. No definite reflux noted during the course of the exam. 4. No imaging abnormality to explain globus sensation. Electronically signed by: Oral Parks MD 03/12/2025 11:48 AM EDT
--- OUTSIDE RECORDS SUMMARY | 2025-03-12 09:36 | XMS_ITS | Clinical Summary ---
Author Organization [facility] Address [address] [place] [address] Care Team Providers Care Oil Expert Name Role Phone Sudha Stewart-Cornelia Primary Care Provider [phone] Source Comments PLEASE NOTE, if this patient [...] AT NIGHT 270 Capsule 1 5 Active loratadine (CLARITIN) 10 mg tabletIndications :Idiopathic urticaria Take 1 Tablet by mouth once daily as needed for allergies. 90 Tablet 1 5 Active propranoloL (INDERAL) 10 mg tabletIndications :Anxiety Take 1 Tablet by mouth daily. 90 Tablet 5 Active PARoxetine HCl (PAXIL-CR) 12.5 mg 24 hr tabletIndications :Anxiety Take 1 Tablet by mouth every morning. 90 Tablet 5 Active PARoxetine (PAXIL) 20 mg tablet Take 1 Tablet by mouth every morning. 90 Tablet 1 5 Active Active Problems Problem Noted Date Diagnosed Date Hepatitis B immune 04/16/2024 Immune to varicella 04/16/2024 History of Helicobacter pylori infection 024 Resolved Problems Problem Noted Date Diagnosed Date Resolved Date Anxiety 02/29/2024 02/29/2024 Encounters Date Type Department Care Team Description 03/05/2025 10:00 AM EDT Office Visit [address] [address] Sudha Stewart FNP-C from Last 3 Months Immunizations Immunization Administration Dates Next Due COVID-19,SARS-COV-2 VACCINE, UNSPECIFIED (US Adm in) 02/01/2024 HEP B, PED/ADOL (KHESXZR-X-IKWG/RECOMBIVAX-PEDS) 02/01/2024,12/19/2023 INFLUENZA, SEASONAL, INJECTABLE 11/11/2023 IPV (IPOL) [...] Sign Reading Time Taken Comments Blood Pressure 110/68 03/05/2025 10:15 AM EDT Pulse 61 03/05/2025 10:15 AM EDT Temperature 37.1 C (98.7 F) 03/05/2025 10:15 AM EDT Respiratory Rate 16 03/05/2025 10:15 AM EDT Oxygen Saturation 99% 03/05/2025 10:15 AM EDT Inhaled Oxygen Concentration - - Weight 85.3 kg (188 lb) 03/05/2025 10:15 AM EDT Height 179 cm (5' 10.47 ) 03/05/2025 10:15 AM ED T Body Mass Index 26.62 03/05/2025 10:15 AM EDT Plan of Treatment Health Maintenance Due Date Last Done Comments Dental Perio Charting 1980 Imm-HPV (1 - 3-dose SCDM series) 10/14/2007 Imm-Influenza (#1) 2025 04/16/2024, 11/11/2023 Dental BW 07/06/2025 07/04/2024 Dental Examination 07/06/2025 07/04/2024 Dental Prophy 07/06/2025 07/04/2024 Annual Wellness (Adult): Ind icated (All Coverage) 10/31/2025 10/31/2024 Anxiety Screening 10/31/2025 10/31/2024 Hypertension Screening (#1) 03/05/2026 Tobacco Screening 03/05/2026 03/05/2025 Diabetes Screening 11/01/2027 10/31/2024, 10/31/2024 Dental FMX/Pano 07/06/2029 07/04/2024 Lipid Screening 10/31/2029 10/31/2024 Imm-DTaP/Tdap/Td (3 - Td or Tdap) 01/31/2034 024, 12/19/2023 Imm-Hepatitis B Discontinued 02/01/2024, 12/19/2023 HIV Screening Completed 02/29/2024 Hepatitis B Screening Completed 02/29/2024, 024 Hepatitis C Screening Completed 02/29/2024 [id number]-13 Completed 04/16/2024, 01/17, 11/11/2023 Alcohol and Drug [...] EDT) 02/04/2025 3:00 AM EDT Sudha Stewart DROP COUNT ASSOCIATE-C REFERRAL Final Res ult * HEMOGLOBIN GLYCOSYLATED A1C (10/31/2024 9:29 AM EDT) HEMOGLOBIN A1C 5.5 <5.7 % [facility] Comment: For the purpose of screening for the presence of diabetes: <5.7% Consistent with the absence of diabetes 5.7-6.4% Consistent with increased risk for diabetes (prediabetes) > or =6.5% Consistent with diabetes This assay result is consistent with a decreased risk of diabetes. Currently, no consensus exists regarding use of hemoglobin A1c for diagnosis of diabetes in children. According to [place] Diabetes Association (ADA) guidelines, hemoglobin A1c <7.0% represents optimal control in non- diabetic patients. Different metrics may apply to specific patient populations. Standards of Medical Care in Diabetes(ADA). Blood Blood / Unknown 10/31/2024 9 :29 AM EDT 10/31/2024 9:30 AM EDT [facility] LAB - BLOOD DRAW Edited R esult - Final [facility] [address] [place] [id number], [facility] [address] [place] [phone] * (ABNORMAL) LIPID PANEL (10/31/2024 9:29 AM EDT) CHOLESTEROL, TOTAL 192 <200 mg/dL [facility] HDL CHOLESTEROL 44 > OR = 40 mg/dL [facility] TRIGLYCERIDES 87 <150 mg/dL [facility] LDL-CHOLESTEROL 129(H) 99 mg/dL (calc) [facility] Comment: Reference range: <100 Desirable range <100 mg/dL for primary prevention; <70 mg/dL for patients with CHD or diabetic patients with > or = 2 CHD risk factors. LDL-C is now calculated using the Ashley calculation, which is a validated novel method providing better accuracy than the Friedewald equation in the estimation of LDL-C. Evaristo SALAS et al. DEDE. 2013;310(19): 0285-3733 (http://education.OmniStrat.PeerIndex/faq/JDB363) CHOL/HDLC RATIO 4.4 <5.0 (calc) [facility] NON-HDL CHOLESTEROL 148(H) <130 mg/dL (calc) [facility] Comment: For patients with diabetes plus 1 major ASCVD risk factor, treating to a non-HDL-C goal of <100 mg/dL (LDL-C of <70 mg/dL) is considered a therapeutic option. Blood Blood / Unknown 10/31/2024 9 :29 AM EDT 10/31/2024 9:30 AM EDT [employer]-[facility] LAB - BLOOD DRAW Final Re sult [facility] [address] [place] [phone], [facility] [address] [phone] * HEPATITIS C AB W/RFLX HCV RNA, QT, RT PCR (02/29/2024 11:31 AM EDT) HEPATITIS C ANTIBODY NON-REACT JOANNA NON-REACT JOANNA [facility] Comment: HCV antibody was non-reactive. There is no laboratory evidence of HCV infection. In most cases, no further action is required. However, if recent HCV exposure is suspected, a test for HCV RNA (test code 25747) is suggested. For additional information please refer to http://education.PocketFM Limited/faq/LEH47u8 (This link is being provided for informational/ educational purposes only.) Blood Blood / Unknown 02/29/2024 1 1:31 AM EDT 02/29/2024 11:32 AM EDT Narrative [facility] - 03/04/2024 10:52 PM EDT FASTING:UNKNOWN COLLECTION KIT GIVEN TO PATIENT. PATIENT ADVISED TO RETURN. Sudha Stewart DROP COUNT ASSOCIATE-C LAB - BLOOD DRAW Edited R esult - Final Performing Organization Address [facility]/ZIP Co de Phone Number [facility] [address] [address], [facility] [address] [address] * HIV 1/2 AG & AB W/RFLX (4TH GEN) (02/29/2024 11:31 AM EDT) HIV AG/AB, 4TH GEN NON-REAC TIVE NON-REAC TIVE [facility] Comment: HIV-1 antigen and HIV-1/HIV-2 antibodies [...] purpose. For additional information please refer to http://education.PocketFM Limited/faq/IBZ157 (This link is being provided for informational/ educational purposes only.) The performance of this assay has not been clinically validated in patients less than 2 years old. Blood Blood / Unknown 02/29/2024 1 1:31 AM EDT 02/29/2024 11:32 AM EDT Narrative [facility] - 03/04/2024 10:52 PM EDT FASTING:UNKNOWN COLLECTION KIT GIVEN TO PATIENT. PATIENT ADVISED TO RETURN. Sudha Stewart DROP COUNT ASSOCIATE-C LAB - BLOOD DRAW Final Re sult Performing Organization Address [facility]/ZIP Co de Phone Number [facility] [address] [address], [place] [address] [address] * HEPATITIS B SURFACE AG, EIA WITH REFLEX CONFIRM (02/29/2024 11:31 AM EDT) HEPATITIS B SURFACE ANTIGEN NON-REACT JOANNA NON-REACT JOANNA [facility] COMMENT [facility] Blood Blood / Unknown 02/29/2024 1 1:31 AM EDT 02/29/2024 11:32 AM EDT Narrative [facility] - 03/04/2024 10:52 PM EDT FASTING:UNKNOWN COLLECTION KIT GIVEN TO PATIENT. PATIENT ADVISED TO RETURN. For additional information, please refer to http://education.Combined Power.PeerIndex/faq/KJC262 (This link is being provided for informational/ educational purposes only.) Sudha DORSEY-Cornelia LAB - BLOOD DRAW Edited R esult - Final [facility] [place] [facility] [address] [address], [facility] [employer] [facility] [address] [place] [address] from Last 3 Months or Most Recently Relevant to Health Maintenance Insurance [address] [employer] [place]ICA[place] DENT[place] Care Teams Oil Expert Relationship Specialty Start Date End Date Sudha Stewart FNP-C [address] [place] [address] PCP - General Internal Medicine 07/04/24
--- OUTSIDE RECORDS SUMMARY | 2025-03-12 09:36 | XMS_ITS | Clinical Summary ---
Author Organization [employer] [facility] Address [address] [facility] [address] [place] [address] Care Team Providers Care Hand Glass Cutter Name Role Phone Unavailable Primary Care Provider Unavailabl e Encounters Date Type Department Care Team Description 01/07/2025 Population Health Risk Score [facility] Care [facility] (C3) Department [address] [facility] [address] [place] [id number] Provider, Population Health Generic from Last 3 [...]
--- OUTSIDE RECORDS SUMMARY | 2025-03-12 09:36 | XMS_ITS | Clinical Summary ---
Author Organization [facility] Address [address] [place] [address] Phone Care Team Providers Care Cloth Cutting Machine Operator Name Role Phone Sudha Stewart WILLIAN Primary Care Provider Encounters Date Type Department Care Team Description 12/30/2024 7:42 AM EDT - 12/30/2024 11:59 PM EDT Hospital Encounter [facility] Xray [address] [place] [address] Other dysphagia Discharge Disposition: Home [...] - Td or Tdap) 01/31/2034 02/01/2024, 12/19/2023 RSV Immunization Adult Patients (1 - 1-dose 75+ series) 10/14/2055 MMR Vaccines Aged Out 12/19/2023, 11/11/2023 No [...] Signed Date: 12/30/2024 15:34 ET Workstation ID: [id number] Transcribed By: Self Edit Transcribed Date: 12/30/2024 11:28 ET Resident/PA/TAX AGENT: Christina Christianson Narrative 12/30/2024 3:34 PM EDT FINDINGS: Double contrast esophagram performed. COMPARISON: None HISTORY: Patient is a 44-year-old male with history of dysphagia, GERD. Boat Pilot radiographs: 1 view chest radiograph demonstrates cardiac [...] 44-year-old male with history of dysphagia, GERD. Boat Pilot radiographs: 1 view chest radiograph demonstrates cardiac [...] Signed Date: 12/30/2024 15:34 ET Workstation ID: [id number] Transcribed By: Self Edit Transcribed Date: 12/30/2024 11:28 ET Resident/PA/TAX AGENT: Christina Christianson Sudha DORSEY IM FLUOROSCOPY PROCEDURES Final Result from Last 3 Months Insurance MEDICAID - [place] Care Teams Cloth Cutting Machine Operator Relationship Specialty Start Date End Date Sudha Stewart FNP [address] [place] [address] PCP - General Family Medicine 11/15/24
== END 2025-03-12 08:34 | disposition home or self-care (01) ==
LOC: HO.XRAY 08:33
PROVIDERS: PCP Dentist General Practice; Visit Provider Internal Medicine Gastroenterology
DX: R13.10 Dysphagia, unspecified (principal)
CPT/HCPCS: 74221

== ENCOUNTER → 2025-03-12 08:35 | Outpatient (BNV) | payer MEDICAID, SELFPAY | PROVIDERS: PCP Dentist General Practice; Visit Provider Radiology Diagnostic Radiology | DX: R13.10 Dysphagia, unspecified (principal) | CPT/HCPCS: 74221 ==

== ENCOUNTER 2025-04-24 08:07 | Outpatient (AMB) | payer MEDICAID, SELFPAY ==
--- NOTE | 2025-04-24 08:18 | A.OFFVIS_ITS ---
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 Recently seen in consultation regarding palpitations. He has had them for quite some time and gets around 3 episodes or so per year. Apparently last for about 20 minutes or so. He has had apparently EKGs in the past but nothing revealing. He has been put on Propranolol and that was helping him. No other complaints like angina, shortness of breath, syncope. He does have a history of acid reflux. Otherwise, no documented cardiac issues like coronary disease or myocardial infarction or cardiomyopathy. Over the last month or so, he has not had any palpitations at all. [facility] Medical History GERD (gastroesophageal reflux disease) Palpitations Surgical History History of esophagogastroduodenoscopy (EGD) Family History Mother Lung cancer Social History Unable to assess alcohol history related to: Unable to respond Patient Tobacco Use Status: Former Tobacco user Tobacco use type: Cigarette Review of Systems Const Denies daytime sleepiness, Denies difficulty sleeping, Denies snoring, Denies stops breathing during sleep and Denies weakness Card Denies chest pain, Denies rapid heart rate, Denies irregular heart rhythm, Denies claudication, Denies leg edema, Denies lightheadedness, Denies palpitations, Denies dyspnea, Denies dyspnea on exertion, Denies orthopnea, Denies paroxysmal nocturnal dyspnea and Denies slow heart rate Resp Denies cough, Denies dyspnea, Denies dyspnea on exertion and Denies snoring GI Reports no additional complaints, Denies hematochezia, Denies change in stool character and Denies dyspepsia Musc Denies abnormal gait, Denies muscle weakness and Denies numbness Neuro Denies abnormal gait, Denies numbness and Denies weakness Endo Denies palpitations Physical Exam Vital Signs: Last Vital Signs Pulse 86 04/24/25 08:19 BP 112/68 04/24/25 08:19 BMI result Body Mass Index 27.3 Const General: comfortable and no acute distress Orientation/consciousness: patient oriented x3 HEENT Other: Unremarkable Head: Yes normal to inspection Neck Neck: Yes normal visual inspection Chest Chest palpation & inspection: normal inspection of the chest Resp Auscultation: clear to auscultation bilaterally Cardio Palpation: normal PMI Heart sounds: S1 normal heart sound present, S2 normal heart sound present, no gallops, no murmurs and no rubs GI Palpation (GI): Soft to palpation Back/Spine/Pelvis Other: unremarkable Skin General skin exam: no rashes or lesions noted Neuro General: patient oriented x3 Extrem General: Yes normal to inspection Psych Mental Status: mental status grossly normal Assessment & Plan Assessment & Plan (1) Palpitations: Code(s): R00.2 - Palpitations Category: Medical (2) PVC (premature ventricular contraction): Code(s): I49.3 - Ventricular premature depolarization Category: Medical Plan Cardiac studies reviewed. Baseline EKGs unremarkable without any significant findings. Echocardiogram with LVEF of 65-70%, normal diastolic function and valves are unremarkable. In the 30 day monitor, underlying rhythm is sinus with rare ventricular ectopy and one episode of 4 beats. Overall, palpitations possibly from PVCs but other arrhythmias like SVT also possible. As the episodes are very infrequent advised him to come to the ER or clinic for an EKG or try to capture that with a smart device as able. He understands that. He will call us with ongoing concerns. Discussion Notes I discussed with the patient that the heart monitor showed only a few extra beats, which are not concerning. I advised that if palpitations return and are rapid, he should seek emergency care to capture the event. We also discussed the use of smart devices to monitor EKGs at home. Patient was informed and verbally consented to the use of an ambient scribe for clinic note documentation during this visit. Medications: Changed From loratadine 10 mg PO DAILY 30 tabs 0RF To loratadine 10 mg PO DAILY PRN Patient Instructions: - Continue taking propranolol as prescribed. - Seek emergency care if palpitations become rapid. - Consider using a smart device to monitor EKGs. Coding Level of Care Code Est Pt Level 3 (55673) Diagnoses Palpitations R00.2 PVC (premature ventricular contraction) I49.3
[2025-04-24 08:19] VITALS: BP 112/68; PULSE 86; BMI 27.3
== END 2025-04-24 08:32 | disposition home or self-care (01) ==
LOC: HO.HCS 08:08
PROVIDERS: Visit Provider Internal Medicine
DX: R00.2 Palpitations (principal); I49.3 Ventricular premature depolarization
CPT/HCPCS: 99213

== ENCOUNTER → 2025-04-24 08:07 | Outpatient (BNVA) | payer MEDICAID, SELFPAY | PROVIDERS: Visit Provider Internal Medicine | DX: I49.3 Ventricular premature depolarization (principal) | CPT/HCPCS: 99212 ==

== ENCOUNTER 2025-04-28 11:47 | Outpatient (AMB) | payer MEDICAID, SELFPAY ==
--- NOTE | 2025-04-28 11:50 | MHC.OFFVIS ---
Vital Signs 04/28/25 11:52 Height 5 ft 9 in Weight 180 lb 12.465 oz BMI 26.7 BP 110/78 Blood Pressure Location Lt brachial Position Sitting Pulse 64 Intake Visit Reasons: 4m Intake Note: Jerry presents in the office as a 4 month follow up. CC: states that he is not having any concerns at this time. Victim Witness Administrator Required: No Allergies animal dander Allergy (Mild, Verified 04/28/25 11:54) Unknown grass pollen Allergy (Mild, Verified 04/28/25 11:54) Unknown mite-Dermatophagoides farinae, tony (dust mite - [place]) Allergy (Mild, Verified 04/28/25 11:54) Unknown mold Allergy (Mild, Verified 04/28/25 11:54) Unknown tree and shrub pollen Allergy (Mild, Verified 04/28/25 11:54) Unknown HPI HPI 4m: Details: 44 yr old m here for f/u RECAP He had issues with stress and GERD 'he had many tests in [place] and [place] EGD was put on paroxetine Recently he feels more reflux worse he has disabled daughter, stressful he feels food getting stuck he has to drink water to push it down he has water and bad taste in mouth he has nausea he has constipation, no blood in stool increased stool frequency at times he takes omeprazole 40 mg prn --last took yesterday he has fatigue he has canker sores H pylori breath test--negative EGD 05/12: balloon dilation, path neg US 10/11: unremarkable INTERIM: he is doing much better 70% improved --thinks its due to anti depressants no dsyphagia he has mild constipation, and hemorrhoids, stool can be hard bloating --fiber intake fair EXAM: GENERAL: The patient is well developed and nontoxic. VITAL SIGNS:see workflow HEENT: Nonicteric sclerae, PERRLA, EOMI. Oropharynx clear. Moist mucous membranes. Conjunctivae appear well perfused. No thyroid mass. CHEST: Chest wall is nontender. HEART: Regular rate and rhythm without murmurs. LUNGS: Clear to auscultation bilaterally. ABDOMEN: Soft, positive bowel sounds, nontender, no organomegaly.no flank tenderness SKIN: No rash, no excessive bruising, petechiae, or purpura. NEUROLOGIC: Cranial nerves II-XII intact without motor/sensory deficit. Psych: normal affect A/P: 1/ atypical body pain, weight loss and GERD with regurg, US neg, labs with mild anemia-- improved with anti depressants PLAN: 1/ doing much better, get miralx, and proctomed --reinforced using fiber supplements PFSH Medical History GERD (gastroesophageal reflux disease) Palpitations Surgical History History of esophagogastroduodenoscopy (EGD) Family History Mother Lung cancer Social History Patient Tobacco Use Status: Former Tobacco user Tobacco use type: Cigarette Physical Exam Vital Signs: Last Vital Signs Pulse 64 04/28/25 11:52 BP 110/78 04/28/25 11:52 BMI result Body Mass Index 26.7 Assessment & Plan Assessment & Plan (1) Constipation: Code(s): K59.00 - Constipation, unspecified Category: Medical Plan: as above Medications: New hydrocortisone 1% (Proctocort) 1 appl topical TID PRN 28.35 grams 1RF skin irritation polyethylene glycol 3350 (Miralax) 17 grams PO DAILY 510 grams 2RF Coding Level of Care Code Est Pt Level 3 (28739) Diagnoses Constipation K59.00
[2025-04-28 11:52] VITALS: BP 110/78; PULSE 64; BMI 26.7
--- OUTSIDE RECORDS SUMMARY | 2025-04-28 14:11 | XMS_ITS | Clinical Summary ---
Author Organization [employer] Address [address] [facility] [address] [place] [address] Care Team Providers Care Sole Assessor Name Role Phone Unavailable Primary Care Provider Unavailabl e Social History Tobacco Use Types Packs/Day Years [...] 1-dose 75+ series) 10/14/2055 HIV Screening Completed 02/29/2024 COVID-19 Vaccine Completed 04/16/2024, [...]
--- OUTSIDE RECORDS SUMMARY | 2025-04-28 14:11 | XMS_ITS | Clinical Summary ---
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
== END 2025-04-28 12:24 | disposition home or self-care (01) ==
LOC: HO.HGI 11:47
PROVIDERS: PCP Registered Nurse; Visit Provider Internal Medicine Gastroenterology
DX: K59.00 Constipation, unspecified (principal)
CPT/HCPCS: 99213

== ENCOUNTER → 2025-04-28 11:47 | Outpatient (BNVA) | payer MEDICAID, SELFPAY | PROVIDERS: PCP Registered Nurse; Visit Provider Internal Medicine Gastroenterology | DX: K59.00 Constipation, unspecified (principal) | CPT/HCPCS: 99212 ==